=== PATIENT | male | born 1970 | race African-American/Black ===

== ENCOUNTER 2016-09-05 08:00 | Emergency (ER) | payer SELFPAY ==
[2016-09-05] MEDS ORDERED: MORPHINE SULFATE 10 MG/ML INJ IV ONE (08:39)
[2016-09-05 09:46] LABS: ABSOLUTE EOSINOPHILS # (AUTO) 0.1 10^3/uL (0.0-0.6); ABSOLUTE LYMPHOCYTES (AUTO) 1.1 10^3/uL (0.5-4.7); ABSOLUTE MONOCYTES (AUTO) 0.9 10^3/uL (0.1-1.4); ABSOLUTE NEUT (AUTO) 10.3 10^3/uL (1.7-8.2); BASOPHILS % (AUTO) 0.1 % (0-2); EOSINOPHILS % (AUTO) 0.7 % (0-6); HEMATOCRIT 43.5 % (37.9-51.0); HEMOGLOBIN 14.9 g/dL (13.5-17.0); HGB HCT DIFFERENCE 1.2; LYMPHOCYTES % (AUTO) 8.8 % (13-45); MEAN CORPUSCULAR HEMOGLOBIN 31.3 pg (27.0-33.4); MEAN CORPUSCULAR HGB CONC 34.2 g/dL (32.0-36.0); MEAN CORPUSCULAR VOLUME 92 fl (80-97); MONOCYTES % (AUTO) 7.5 % (3-13); RED BLOOD COUNT 4.75 10^6/uL (4.35-5.55); RED CELL DISTRIBUTION WIDTH 12.8 % (11.5-14.0); SEGMENTED NEUTROPHILS % (AUTO) 82.9 % (42-78); WHITE BLOOD COUNT 12.4 10^3/uL (4.0-10.5)
[2016-09-05 10:03] LABS: ALANINE AMINOTRANSFERASE 25 U/L (21-72); ALBUMIN 4.5 g/dL (3.5-5.0); ALCOHOL < 10 mg/dL (NONE DETECTED); ALKALINE PHOSPHATASE 81 U/L (38-126); ANION GAP 11 (5-19); ASPARTATE AMINO TRANSFERASE 20 U/L (17-59); BILIRUBIN,TOTAL 1.1 mg/dL (0.2-1.3); BLOOD UREA NITROGEN 12 mg/dL (7-20); CARBON DIOXIDE 25 mmol/L (22-30); CHLORIDE 104 mmol/L (98-107); CREATININE RESULT 0.98 mg/dL (0.52-1.25); GLUCOSE 83 mg/dL (75-110); LIPASE 54.7 U/L (23-300); POTASSIUM 3.7 mmol/L (3.6-5.0); SODIUM 139.5 mmol/L (137-145); TOTAL PROTEIN 7.2 g/dL (6.3-8.2)
[2016-09-05 10:27] LABS: APPEARANCE,URINE CLEAR; BILIRUBIN,URINE NEGATIVE (NEGATIVE); GLUCOSE, URINE NEGATIVE (NEGATIVE); KETONES,URINE TRACE mg/dL (NEGATIVE); LEUKOCYTE ESTERASE,URINE NEGATIVE (NEGATIVE); NITRITE,URINE NEGATIVE (NEGATIVE); PROTEIN,URINE NEGATIVE (NEGATIVE); URINE SPECIFIC GRAVITY 1.011; UROBILINOGEN,URINE NEGATIVE mg/dL (<2.0)
--- NOTE | 2016-09-05 10:33 | ER Document Report ---
ED GI/ - General Chief Complaint: Abdominal Pain Stated Complaint: ABDOMINAL PAIN Notes: Patient is a 46-year-old male presents emergency Department with left lower quadrant pain that started at 3 AM. Patient describes it as a constant ache nonradiating. Admits to nausea without vomiting. Last bowel movement was yesterday normal, soft without any evidence of blood or dark stool. Denies any fevers, bloating, pyuria, hematuria. States his urine is been a normal color. Does not have a primary care provider Does not have any past medical or past surgical history Social history he states that he has a her current smoker less than half pack a day, admits to daily alcohol use about 240 today. States that he is a drug user occasionally. Last use was cocaine on Monday. Denies any Gross, benzos, opiates or mouth. Denies any allergies TRAVEL OUTSIDE OF THE [place] IN LAST 30 DAYS: No - Related Data Allergies/Adverse Reactions: No Known Allergies Allergy (Unverified 08/01/12 15:55) Past Medical History - Social History Smoking Status: Current Every Day Smoker Family History: Reviewed & Not Pertinent - Past Medical History Cardiac Medical History: Reports: Hx Hypertension - no meds Skin Medical History: Denies Hx MRSA Surgical Hx: Negative - Immunizations Hx Diphtheria, Pertussis, Tetanus Vaccination: Yes Review of Systems - Review of Systems Constitutional: No symptoms reported EENT: No symptoms reported Cardiovascular: No symptoms reported Respiratory: No symptoms reported Gastrointestinal: See HPI Genitourinary: No symptoms reported Male Genitourinary: No symptoms reported Musculoskeletal: No symptoms reported Skin: No symptoms reported Hematologic/Lymphatic: No symptoms reported Neurological/Psychological: No symptoms reported Physical Exam - Vital signs Vitals: Temp Pulse Resp BP Pulse Ox 98.6 F 81 20 153/111 H 98 09/05/16 08:06 09/05/16 08:06 09/05/16 08:06 09/05/16 08:06 09/05/16 08:06 - Notes Notes: PHYSICAL EXAM GENERAL: Alert, interacts well. HEAD: Normocephalic, atraumatic. EYES: Pupils equal, round, and reactive to light. Extraocular movements intact. ENT: Oral mucosa moist, tongue midline. NECK: Full range of motion. Supple. Trachea midline. LUNGS: Clear to auscultation bilaterally, no wheezes, rales, or rhonchi. No respiratory distress. HEART: Regular rate and rhythm. No murmurs, gallops, or rubs. ABDOMEN: Soft, nondistended, nontender. No guarding, rebound, or rigidity.. Bowel sounds present in all 4 quadrants. Back: No CVA tenderness bilaterally EXTREMITIES: Moves all 4 extremities spontaneously. No edema, radial and dorsalis pedis pulses 2/4 bilaterally. No cyanosis. Back: mild tenderness to palpation of right lumbar paraspinous muscles NEUROLOGICAL: Alert and oriented x3. Normal speech. PSYCH: Normal affect, normal mood. SKIN: Warm, dry, normal turgor. No rashes or lesions noted. Course - Re-evaluation Re-evalutation: 09/05/16 11:02 patient is a 46 year old male p/w left side pain. CBC with mild elevation in WBC , no anemia. CMP WNL. UA nl. No concern for acute intraabdominal process at this time given benign physical exam and lab work. No additional imaging required at this time. Upon reexamination. Patient states that his pain is the same but he now is able to stand up and points to his back where he says the pain originated. This is not consistent with initial presentation. Palpation of the lumbar paraspinous muscles reveal tenderness. 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 - Vital Signs Vital signs: Temp Pulse Resp BP Pulse Ox 98.6 F 81 20 153/111 H 98 09/05/16 08:06 09/05/16 08:06 09/05/16 08:06 09/05/16 08:06 09/05/16 08:06 - Laboratory Result Diagrams: 09/05/16 09:14 09/05/16 09:14 Laboratory results interpreted by me: 09/05/16 09/05/16 09/05/16 09:14 09:14 10:06 WBC 12.4 H Seg Neutrophils % 82.9 H Lymphocytes % 8.8 L Absolute Neutrophils 10.3 H Urine Ketones TRACE H Salicylates < 1.0 L Acetaminophen < 10 L Discharge - Discharge Clinical Impression: Abdominal wall pain Condition: Good Disposition: HOME, SELF-CARE Additional Instructions: Muscle Strain You have strained a muscle -- torn the fibers within the muscle. This often occurs with strenuous exertion, or during an injury that suddenly stretches the muscle. The seriousness of a strain varies. Some strains heal within days, others cause problems for months. X-rays cannot show a muscle strain. X-rays are taken only if symptoms suggest that a fracture could be present. The usual treatment of a muscle strain is rest and ice packs. Sometimes, a sling, splint, or crutches may be necessary to rest the muscle. The muscle can be used again once pain subsides. Severe strains require a special exercise and stretching program to prevent permanent stiffness and disability. Your doctor will advise you if this will be necessary. Call the doctor immediately if pain or swelling becomes severe, or if numbness or discoloration develop. Muscle Relaxers Muscle relaxing medications are usually prescribed for acute muscle spasm or injury to the neck and back. They are often combined with antiinflammatory pain medication for increased relief. You may stop the muscle relaxer when the pain and stiffness have improved. Start the medication again if spasms recur. Muscle relaxers may cause drowsiness, especially with the first dose. Do not operate machinery or drive while under the effects of the medication. Most muscle relaxers last up to 24 hours. Do not combine the medication with alcohol. Prescriptions: Cyclobenzaprine HCl [Flexeril 5 mg Tablet] 5 mg PO TID #15 tablet Ibuprofen [Motrin 800 mg Tablet] 800 mg PO Q8H PRN #30 tab PRN Reason: Forms: Elevated Blood Pressure, Return to Work Referrals: [facility] [NO LOCAL MD] - Follow up as needed
[2016-09-05 10:47] LABS: URINE BARBITURATES SCREEN NEGATIVE; URINE METHADONE SCREEN NEGATIVE; URINE OPIATES LOW NEGATIVE; URINE PHENCYCLIDINE SCREEN NEGATIVE
[2016-09-05] MEDS ORDERED: CYCLOBENZAPRINE HCL 10 MG TABLET PO ONE (11:01)
[2016-09-05 11:47] VITALS: BP 168/115
== END 2016-09-05 11:43 | disposition home or self-care (01) ==
LOC: ER 08:00
DX: R10.32 Left lower quadrant pain (principal); F17.210 Nicotine dependence, cigarettes, uncomplicated; I10 Essential (primary) hypertension
CPT/HCPCS: 99284; 96374; 36415; 80307 ×4; 83690; 85025; 80053; 81001; J2270

== ENCOUNTER 2017-03-16 13:47 | Emergency (ER) | payer SELFPAY ==
--- NOTE | 2017-03-16 14:21 | ER Document Report ---
ED Medical Screen (RME) - General Chief Complaint: Abdominal Pain Stated Complaint: ABDOMINAL PAIN Time Seen by Provider: 03/16/17 14:19 Mode of Arrival: Ambulatory Information source: Patient TRAVEL OUTSIDE OF THE [place] IN LAST 30 DAYS: No - HPI Patient complains to provider of: abd/rectal pain Onset: Other - pt. had a painful BM earlier this week and has been having intermittent abd/rectal pain since - Related Data Allergies/Adverse Reactions: No Known Allergies Allergy (Verified 03/16/17 14:17) Past Medical History - Past Medical History Cardiac Medical History: Reports: Hx Hypertension - no meds Renal/ Medical History: Denies: Hx Peritoneal Dialysis Skin Medical History: Denies Hx MRSA - Immunizations Hx Diphtheria, Pertussis, Tetanus Vaccination: Yes Physical Exam - Vital signs Vitals: Temp Pulse Resp BP Pulse Ox 98.6 F 67 12 155/103 H 97 03/16/17 14:05 03/16/17 14:05 03/16/17 14:05 03/16/17 14:05 03/16/17 14:05 Course - Vital Signs Vital signs: Temp Pulse Resp BP Pulse Ox 98.6 F 67 12 155/103 H 97 03/16/17 14:05 03/16/17 14:05 03/16/17 14:05 03/16/17 14:05 03/16/17 14:05
[2017-03-16 14:49] LABS: ABSOLUTE EOSINOPHILS # (AUTO) 0.3 10^3/uL (0.0-0.6); ABSOLUTE LYMPHOCYTES (AUTO) 1.8 10^3/uL (0.5-4.7); ABSOLUTE MONOCYTES (AUTO) 0.8 10^3/uL (0.1-1.4); ABSOLUTE NEUT (AUTO) 6.8 10^3/uL (1.7-8.2); BASOPHILS % (AUTO) 0.3 % (0-2); EOSINOPHILS % (AUTO) 2.7 % (0-6); HEMATOCRIT 42.7 % (37.9-51.0); HGB HCT DIFFERENCE 2.3; LYMPHOCYTES % (AUTO) 18.2 % (13-45); MEAN CORPUSCULAR HEMOGLOBIN 31.9 pg (27.0-33.4); MEAN CORPUSCULAR HGB CONC 35.1 g/dL (32.0-36.0); MEAN CORPUSCULAR VOLUME 91 fl (80-97); MONOCYTES % (AUTO) 8.7 % (3-13); RED CELL DISTRIBUTION WIDTH 13.1 % (11.5-14.0); SEGMENTED NEUTROPHILS % (AUTO) 70.1 % (42-78); WHITE BLOOD COUNT 9.7 10^3/uL (4.0-10.5)
[2017-03-16 14:51] LABS: APPEARANCE,URINE CLEAR; BILIRUBIN,URINE NEGATIVE (NEGATIVE); GLUCOSE, URINE NEGATIVE (NEGATIVE); KETONES,URINE NEGATIVE (NEGATIVE); LEUKOCYTE ESTERASE,URINE NEGATIVE (NEGATIVE); NITRITE,URINE NEGATIVE (NEGATIVE); PROTEIN,URINE NEGATIVE (NEGATIVE); URINE SPECIFIC GRAVITY 1.009
[2017-03-16 15:05] LABS: ALANINE AMINOTRANSFERASE 25 U/L (21-72); ALKALINE PHOSPHATASE 83 U/L (38-126); ANION GAP 10 (5-19); ASPARTATE AMINO TRANSFERASE 17 U/L (17-59); BILIRUBIN,DIRECT 0.3 mg/dL (0.0-0.4); BILIRUBIN,TOTAL 0.6 mg/dL (0.2-1.3); BLOOD UREA NITROGEN 9 mg/dL (7-20); CALCIUM 9.6 mg/dL (8.4-10.2); CARBON DIOXIDE 28 mmol/L (22-30); CHLORIDE 104 mmol/L (98-107); CREATININE RESULT 1.06 mg/dL (0.52-1.25); GLUCOSE 109 mg/dL (75-110); POTASSIUM 3.6 mmol/L (3.6-5.0); SODIUM 141.9 mmol/L (137-145); TOTAL PROTEIN 6.8 g/dL (6.3-8.2)
--- NOTE | 2017-03-16 16:01 | RADIOLOGY REPORT (SQ) ---
EXAM DESCRIPTION: ACUTE ABDOMEN SERIES COMPLETED DATE/TIME: 03/16/2017 3:50 pm REASON FOR STUDY: abdominal pain COMPARISON: Two-view chest 10/28/2014 NUMBER OF VIEWS: Three views. TECHNIQUE: Frontal chest, supine abdomen and upright abdomen radiographic images acquired. LIMITATIONS: None. FINDINGS: CHEST: Lungs clear of infiltrates. Cardiac silhouette size, richie, bony structures unremar kable. FREE AIR: None. No abnormal gas collections. BOWEL GAS PATTERN: Nonobstructive pattern. No dilated loops or air fluid levels. CALCIFICATIONS: No suspicious calcifications. HARDWARE: None in the abdomen. SOFT TISSUES: No gross mass or suggestion of organomegaly. BONES: No acute fracture. No worrisome bone lesions. OTHER: No other significant finding. IMPRESSION: NO RADIOGRAPHIC EVIDENCE FOR ACUTE ABDOMINAL DISEASE. TECHNICAL DOCUMENTATION: JOB ID: [id number] [employer]- All Rights Reserved
[2017-03-16] MEDS ORDERED: IBUPROFEN 800 MG TABLET PO ONE (17:00)
--- NOTE | 2017-03-16 17:00 | ER Document Report ---
ED GI/ - General Chief Complaint: Abdominal Pain Stated Complaint: ABDOMINAL PAIN Time Seen by Provider: 03/16/17 14:19 Mode of Arrival: Ambulatory Notes: Patient is a 46-year-old male who presents emergency department complaining of rectal pain. Patient states that he has had several hard bowel movements over the course of last week most recently on Monday and on Monday started having rectal pain with bowel movements. Patient states has become more severe over the past 2 days with sitting. Patient states he has been taking Tylenol which does help him sleep otherwise has been able to have bowel movements without any evidence of blood or dark tarry stools. Patient denies any hematochezia. Patient states that he does have a history of blood pressure but is not follow- up with primary care physician. Denies any history of hemorrhoids TRAVEL OUTSIDE OF THE [place] IN LAST 30 DAYS: No - Related Data Allergies/Adverse Reactions: No Known Allergies Allergy (Verified 03/16/17 14:17) Home Medications: Current Home Medications No Home Medications 03/16/17 [History] Past Medical History - General Information source: Patient - Social History Smoking Status: Current Every Day Smoker Chew tobacco use (# tins/day): No Frequency of alcohol use: Social Drug Abuse: None Family History: Reviewed & Not Pertinent - Past Medical History Cardiac Medical History: Reports: Hx Hypertension - no meds Renal/ Medical History: Denies: Hx Peritoneal Dialysis Skin Medical History: Denies Hx MRSA - Immunizations Hx Diphtheria, Pertussis, Tetanus Vaccination: Yes Review of Systems - Review of Systems Constitutional: No symptoms reported Cardiovascular: No symptoms reported Respiratory: No symptoms reported Gastrointestinal: See HPI Neurological/Psychological: No symptoms reported Physical Exam - Vital signs Vitals: Temp Pulse Resp BP Pulse Ox 98.6 F 67 12 155/103 H 97 03/16/17 14:05 03/16/17 14:05 03/16/17 14:05 03/16/17 14:05 03/16/17 14:05 - Notes Notes: PHYSICAL EXAM GENERAL: Alert, interacts well. HEAD: Normocephalic, atraumatic. EYES: Pupils equal, round, and reactive to light. Extraocular movements intact. ENT: Oral mucosa moist, tongue midline. NECK: Full range of motion. Supple. Trachea midline. LUNGS: Clear to auscultation bilaterally, no wheezes, rales, or rhonchi. No respiratory distress. HEART: Regular rate and rhythm. No murmurs, gallops, or rubs. ABDOMEN: Soft, nondistended, nontender. No guarding, rebound, or rigidity.. Bowel sounds present in all 4 quadrants. Rectal: No evidence of induration, edema, erythema, fluctuance surrounding the anus of the gluteal tissue. Anus without any evidence of hemorrhoids that are thrombosed. On digital exam palpation of internal hemorrhoid that reproduces patient's pain otherwise prostate not inflamed nontender. EXTREMITIES: Moves all 4 extremities spontaneously. No edema, radial and dorsalis pedis pulses 2/4 bilaterally. No cyanosis. NEUROLOGICAL: Alert and oriented x4. Normal speech. PSYCH: Normal affect, normal mood. SKIN: Warm, dry, normal turgor. No rashes or lesions noted. Course - Re-evaluation Re-evalutation: 03/16/17 19:01 Patient is a 46-year-old male presents emergency department complaining of rectal pain. He is hemodynamic stable, no acute distress afebrile. No evidence of leukocytosis or anemia noted on CBC. No evidence of electrolyte abnormalities, renal, hepatic dysfunction. Physical exam is consistent with an inflamed internal hemorrhoid. Patient educated on suppositories to buy over-the -counter as well is pain medication and to [facility]. No evidence low clinical suspicion for prostatitis given clean urine and prostate nontender on exam. Patient is afebrile without any white count given low concern for any rectal abscess Or pilonidal cyst. Patient given strict return precautions otherwise stable for discharge. - Vital Signs Vital signs: Temp Pulse Resp BP Pulse Ox 98.6 F 71 16 153/105 H 98 03/16/17 17:10 03/16/17 17:10 03/16/17 17:10 03/16/17 17:10 03/16/17 17:10 - Laboratory Result Diagrams: 03/16/17 14:32 03/16/17 14:32 Laboratory results interpreted by me: 03/16/17 14:32 Urine Urobilinogen 4.0 H - Diagnostic Test Radiology reviewed: Image reviewed, Reports reviewed Discharge - Discharge Clinical Impression: Hemorrhoids Qualifiers: Hemorrhoid type: first degree Qualified Code(s): K64.0 - First degree hemorrhoids Condition: Good Disposition: HOME, SELF-CARE Additional Instructions: Hemorrhoids You have hemorrhoids. These are formed by enlargement of veins around the anus. The cause is increased pressure in the veins, from or straining at bowel movements. Hemorrhoids often cause itching and bleeding with bowel movements. When a hemorrhoid becomes clotted, severe pain and swelling result. Soothing creams and suppositories are often prescribed. Warm sitz-baths may also decrease pain, swelling, and itching. Eat a high-fiber diet. Stool softeners such as Metamucil will help. Keep the area very clean. Medicated cleansing pads (such as Tucks) are useful after bowel movements. A hose-mounted shower unit (like a shower massager at low water pressure) can be used to clean around tender hemorrhoid tags. You should call the doctor or return if you develop fever, increasing pain , or an enlarging mass around the anus, or if you simply fail to improve with treatment. Preparation H, Docusate and Motrin/Tylenol Referrals: [facility] [NO LOCAL MD] - Follow up as needed
[2017-03-16 17:11] VITALS: BP 153/105
== END 2017-03-16 19:28 | disposition home or self-care (01) ==
LOC: ER 13:47
DX: K64.0 First degree hemorrhoids (principal); F17.200 Nicotine dependence, unspecified, uncomplicated; I10 Essential (primary) hypertension
CPT/HCPCS: 36415; 74022; 80053; 81001; 85025; 99283

== ENCOUNTER 2017-03-22 16:04 | Inpatient (IN) | payer SELFPAY ==
--- NOTE | 2017-03-22 18:01 | ER Document Report ---
ED Medical Screen (RME) - General Chief Complaint: Rectal Pain Stated Complaint: RECTAL PAIN Time Seen by Provider: 03/22/17 18:00 Notes: Patient states he was seen here approximately week ago and diagnosed with hemorrhoids. Today he had a follow-up appointment at clinic. At clinic they felt that the patient had a possible abscess and not hemorrhoids and was referred to the emergency department. On my exam I do not appreciate an abscess or hemorrhoid however patient does appear to have indurated tissue perirectally with tenderness. TRAVEL OUTSIDE OF THE [place] IN LAST 30 DAYS: No - Related Data Allergies/Adverse Reactions: No Known Allergies Allergy (Verified 03/22/17 16:07) Past Medical History - Past Medical History Cardiac Medical History: Reports: Hx Hypertension - no meds Renal/ Medical History: Denies: Hx Peritoneal Dialysis Skin Medical History: Denies Hx MRSA - Immunizations Hx Diphtheria, Pertussis, Tetanus Vaccination: Yes Physical Exam - Vital signs Vitals: Temp Pulse Resp BP Pulse Ox 98.5 F 80 14 159/100 H 98 03/22/17 16:05 03/22/17 16:05 03/22/17 16:05 03/22/17 16:05 03/22/17 16:05 Course - Vital Signs Vital signs: Temp Pulse Resp BP Pulse Ox 98.5 F 80 14 159/100 H 98 03/22/17 16:05 03/22/17 16:05 03/22/17 16:05 03/22/17 16:05 03/22/17 16:05
[2017-03-22 18:55] LABS: ABSOLUTE EOSINOPHILS # (AUTO) 0.2 10^3/uL (0.0-0.6); ABSOLUTE LYMPHOCYTES (AUTO) 1.4 10^3/uL (0.5-4.7); ABSOLUTE MONOCYTES (AUTO) 2.4 10^3/uL (0.1-1.4); ABSOLUTE NEUT (AUTO) 14.8 10^3/uL (1.7-8.2); BASOPHILS % (AUTO) 0.2 % (0-2); EOSINOPHILS % (AUTO) 0.8 % (0-6); HEMATOCRIT 42.4 % (37.9-51.0); HEMOGLOBIN 14.7 g/dL (13.5-17.0); HGB HCT DIFFERENCE 1.7; LYMPHOCYTES % (AUTO) 7.4 % (13-45); MEAN CORPUSCULAR HEMOGLOBIN 31.3 pg (27.0-33.4); MEAN CORPUSCULAR HGB CONC 34.7 g/dL (32.0-36.0); MEAN CORPUSCULAR VOLUME 90 fl (80-97); MONOCYTES % (AUTO) 12.6 % (3-13); RED BLOOD COUNT 4.69 10^6/uL (4.35-5.55); RED CELL DISTRIBUTION WIDTH 13.3 % (11.5-14.0); WHITE BLOOD COUNT 18.8 10^3/uL (4.0-10.5)
--- NOTE | 2017-03-22 19:07 | RADIOLOGY REPORT (SQ) ---
EXAM DESCRIPTION: CT PELVIS WITH COMPLETED DATE/TIME: 03/22/2017 6:51 pm REASON FOR STUDY: rectal pain/r.o. abscess COMPARISON: None. TECHNIQUE: CT scan of the pelvis performed using helical scanning technique with dynamic intravenou s contrast injection. No oral contrast. Images reviewed with lung, soft tissue, and bone windows. Re constructed coronal and sagittal MPR images reviewed. Delayed images for evaluation of the urinary sy stem also acquired. All images stored on PACS. All CT scanners at this facility use dose modulation, iterative reconstruction, and/or weight based d osing when appropriate to reduce radiation dose to as low as reasonably achievable (ALARA). [facility]: Dose Right [facility]: CareDose [facility]: Dose Right [facility]: Teradose 4D [facility]: [place] CONTRAST TYPE AND DOSE: contrast/concentration: Isovue 370.00 mg/ml; Total Contrast Delivered: 100.0 ml; Total Saline Delivered: 40.0 ml RENAL FUNCTION: Creatinine 1.06 RADIATION DOSE: Up-to-date CT equipment and radiation dose reduction techniques were employed. CTDIv ol: 19.7 - 21.0 mGy. DLP: 1656 mGy-cm.. LIMITATIONS: None. FINDINGS: LEFT KIDNEY AND URETER: Partially imaged. AORTA AND VESSELS: No aneurysm. No dissection. Renal arteries, SMA, celiac without stenosis. RETROPERITONEUM: No retroperitoneal adenopathy, hemorrhage or masses. BOWEL AND PERITONEAL CAVITY: There is an 8.4 x 4.7 cm poorly defined multilocular perirectal fluid co llection lateral and posterior. Most consistent with abscess. APPENDIX: Normal. PELVIS: No free fluid. No significant finding in the bladder. ABDOMINAL WALL: No masses. No hernias. BONES: No significant or acute findings. OTHER: No other significant finding. IMPRESSION: Poorly defined loculated perirectal abscess. TECHNICAL DOCUMENTATION: JOB ID: [id number] Quality ID # [id number]: Final reports with documentation of one or more dose reduction techniques (e.g., Au tomated exposure control, adjustment of the mA and/or kV according to patient size, use of iterative reconstruction technique) 2010 [email or web address]- All Rights Reserved
--- NOTE | 2017-03-22 19:23 | ER Document Report ---
ED General - General Chief Complaint: Rectal Pain Stated Complaint: RECTAL PAIN Time Seen by Provider: 03/22/17 18:00 Notes: Patient is a 46-year-old male who comes emergency department for chief complaint of pain around the upper and mainly left buttocks area, symptoms started about 1.5 weeks ago, he states he was evaluated in the community clinic today and sent over for treatment. He denies any fevers, drainage, he denies painful bowel movements. He states it is painful to sit on the area. He denies any other symptoms. Past medical history of hypertension, he is treated for this, only other medical history is cyst removal from the neck as a child. TRAVEL OUTSIDE OF THE [place] IN LAST 30 DAYS: No - Related Data Allergies/Adverse Reactions: No Known Allergies Allergy (Verified 03/22/17 16:07) Past Medical History - General Information source: Patient - Social History Smoking Status: Current Every Day Smoker Smoking Education Provided: Yes - <3 min Frequency of alcohol use: None Drug Abuse: None Lives with: Family Family History: Reviewed & Not Pertinent - Past Medical History Cardiac Medical History: Reports: Hx Hypertension - medicated Renal/ Medical History: Denies: Hx Peritoneal Dialysis Skin Medical History: Denies Hx MRSA Past Surgical History: Reports: Other - cyst removal from neck (pediatric); unknown further details - Immunizations Immunizations up to date: Yes Hx Diphtheria, Pertussis, Tetanus Vaccination: Yes Review of Systems - Review of Systems Constitutional: No symptoms reported EENT: No symptoms reported Cardiovascular: No symptoms reported Respiratory: No symptoms reported Gastrointestinal: See HPI Genitourinary: No symptoms reported Male Genitourinary: No symptoms reported Musculoskeletal: No symptoms reported Skin: See HPI Hematologic/Lymphatic: No symptoms reported Neurological/Psychological: No symptoms reported Physical Exam - Vital signs Vitals: Temp Pulse Resp BP Pulse Ox 98.5 F 80 14 159/100 H 98 03/22/17 16:05 03/22/17 16:05 03/22/17 16:05 03/22/17 16:05 03/22/17 16:05 Interpretation: Normal - General General appearance: Alert, Anxious In distress: Mild - patient lying on his belly, appearing to be in pain - HEENT Head: Normocephalic, Atraumatic Eyes: Normal Conjunctiva: Normal Extraocular movements intact: Yes Eyelashes: Normal Pupils: PERRL Sinus: Normal Nasal: Normal Mouth/Lips: Normal Mucous membranes: Normal Pharynx: Normal Neck: Normal - Respiratory Respiratory status: No respiratory distress Chest status: Nontender Breath sounds: Normal. No: Decreased air movement, Wheezing Chest palpation: Normal - Cardiovascular Rhythm: Regular. No: Tachycardia Heart sounds: Normal auscultation, S1 appreciated, S2 appreciated Murmur: No - Abdominal Inspection: Normal Distension: No distension Bowel sounds: Normal Tenderness: Nontender Organomegaly: No organomegaly - Rectal Notes: I do not appreciate an abscess at the rectum, I do not appreciate any abnormalities inside of the rectum, area is not significantly tender. There is induration around the majority of the left mid to upper half of the left medial gluteal area extending up around around to the right side (some additional induration to the right side). Area is very tender. No fluctuance, no cellulitis evident, remaining exam unremarkable. - Back Back: Normal, Nontender. No: Tender - Extremities General upper extremity: Normal inspection, Nontender, Normal color, Normal ROM , Normal temperature General lower extremity: Normal inspection, Nontender, Normal color, Normal ROM , Normal temperature, Normal weight bearing - Neurological Neuro grossly intact: Yes Cognition: Normal Orientation: AAOx4 [place] Coma Scale Eye Opening: Spontaneous [place] Coma Scale Verbal: Oriented [place] Coma Scale Motor: Obeys Commands [place] Coma Scale Total: 15 Speech: Normal Motor strength normal: LUE, RUE, LLE, RLE Sensory: Normal - Psychological Associated symptoms: Normal affect, Normal mood - Skin Skin Temperature: Warm Skin Moisture: Dry Skin Color: Normal Course - Re-evaluation Re-evalutation: Concerning size of the indurated area on exam, although does not involve the anal sphincter, rectal exam is unremarkable. No fluctuant head. Leukocytosis of 18.8 with elevation of neutrophils but no bandemia. No fever or tachycardia. CT of the pelvis showing large abscess on both sides, almost 8.5 cm x 4.5 cm in size, appears deep. Described as loculated. Discussed with Dr. Beard. Recommends surgical consult, spoke with Dr. Hamlin, he will evaluate the patient at bedside. Patient's last meal was at 1 PM, he will be kept n.p.o. given Rocephin and vancomycin, given pain medication. Dr. Hamlin recommends patient be taken to the OR now for incision, drainage, debridement. Patient states full agreement with this plan. - Vital Signs Vital signs: Temp Pulse Resp BP Pulse Ox 98.5 F 80 14 159/100 H 98 03/22/17 16:05 03/22/17 16:05 03/22/17 16:05 03/22/17 16:05 03/22/17 16:05 - Laboratory Result Diagrams: 03/22/17 18:35 03/22/17 18:35 Laboratory results interpreted by me: 03/22/17 03/22/17 18:35 18:35 WBC 18.8 H Seg Neutrophils % 79.0 H Lymphocytes % 7.4 L Absolute Neutrophils 14.8 H Absolute Monocytes 2.4 H Potassium 3.3 L Direct Bilirubin 0.6 H Total Protein 8.3 H Discharge - Discharge Clinical Impression: Perirectal abscess Condition: Stable Disposition: ADMITTED INPATIENT Admitting Provider: Surgicalist Unit Admitted: OR
[2017-03-22 19:28] LABS: ALANINE AMINOTRANSFERASE 36 U/L (21-72); ALBUMIN 4.2 g/dL (3.5-5.0); ALKALINE PHOSPHATASE 111 U/L (38-126); ANION GAP 12 (5-19); ASPARTATE AMINO TRANSFERASE 31 U/L (17-59); BILIRUBIN,DIRECT 0.6 mg/dL (0.0-0.4); BILIRUBIN,TOTAL 0.9 mg/dL (0.2-1.3); BLOOD UREA NITROGEN 14 mg/dL (7-20); CALCIUM 9.9 mg/dL (8.4-10.2); CARBON DIOXIDE 27 mmol/L (22-30); CHLORIDE 103 mmol/L (98-107); GLUCOSE 86 mg/dL (75-110); POTASSIUM 3.3 mmol/L (3.6-5.0); SODIUM 142.4 mmol/L (137-145); TOTAL PROTEIN 8.3 g/dL (6.3-8.2)
[2017-03-22] MEDS ORDERED: HYDROMORPHONE HCL INJ/PF 2 MG/ML AMPULE IV ONE (19:41)
[2017-03-22] MEDS ORDERED: ONDANSETRON HCL INJ/PF 4 MG/2 ML SDV IV ONE (19:41)
[2017-03-22] MEDS ORDERED: VANCOMYCIN HCL INJ 1000 MG VIAL IV ONE (19:43)
[2017-03-22] MEDS ORDERED: CEFTRIAXONE 1 GM/D5W RTU 1 GM/50 ML RTUPB IV ONE (19:43)
--- NOTE | 2017-03-22 20:37 | PDOC H&P ---
History of Present Illness Admission Date/PCP: Today Patient complains of: Perianal pain History of Present Illness: KOURTNEY HARRINGTON is a 46 year old male presents to [facility] ER with progressive worsening perirectal pain. He notes that this started a week and half ago but slowly got worse over the last 10 days. Currently now difficult to ambulate as well as lie recumbent on the site. Notes the pain to be 7-9 out of 10 with palpation. Without palpation at rest the pain is [address] in the ER notes a perirectal abscess 8 cm in size in largest diameter. Patient also has is 18,000 leukocytosis. Currently denying any fever chest pain shortness breath nausea vomiting diarrhea. Patient's only significant past medical history is that of hypertension family history of diabetes. Last oral intake was 1 PM this afternoon. Last BM was today formed. Past Medical History Cardiac Medical History: Reports: Hypertension - no meds Past Surgical History Past Surgical History: Reports: None Social History Information Source: Patient Lives with: Family Smoking Status: Never Smoker Frequency of Alcohol Use: None Hx Recreational Drug Use: No Hx Prescription Drug Abuse: No Family History Family History: Reviewed & Not Pertinent Parental Family History Reviewed: Yes - Grandmother history of DM Children Family History Reviewed: Yes Sibling(s) Family History Reviewed.: Yes Medication/Allergy Home Medications: No Home Medications 03/16/17 Allergies/Adverse Reactions: No Known Allergies Allergy (Verified 03/22/17 16:07) Review of Systems Constitutional: ABSENT: fatigue, fever(s), headache(s), weakness Eyes: ABSENT: visual disturbances Ears: ABSENT: hearing changes Nose, Mouth, and Throat: ABSENT: mouth pain, sore throat Cardiovascular: ABSENT: chest pain, dyspnea on exertion, edema, palpitations Respiratory: ABSENT: cough, dyspnea Gastrointestinal: ABSENT: abdominal pain, constipation, diarrhea, dysphagia, nausea, vomiting Genitourinary: ABSENT: dysuria Neurological: ABSENT: vertigo, weakness Physical Exam Vital Signs: Temp Pulse Resp BP Pulse Ox 98.5 F 80 14 159/100 H 98 03/22/17 16:05 03/22/17 16:05 03/22/17 16:05 03/22/17 16:05 03/22/17 16:05 Intake & Output 03/21/17 03/22/17 03/23/17 06:59 06:59 06:59 Weight 108.1 kg General appearance: PRESENT: no acute distress Head exam: PRESENT: atraumatic, normocephalic Eye exam: PRESENT: conjunctiva pink Mouth exam: PRESENT: moist, neck supple Neck exam: ABSENT: lymphadenopathy, tenderness, thyromegaly, tracheal deviation Respiratory exam: PRESENT: clear to auscultation jessica Cardiovascular exam: PRESENT: RRR Vascular exam: PRESENT: normal capillary refill GI/Abdominal exam: PRESENT: soft. ABSENT: distended, firm, guarding, tenderness Rectal exam: PRESENT: deferred, other - perirectal inflammatory changes with minimal erythema Extremities exam: ABSENT: calf tenderness, tenderness Neurological exam: PRESENT: alert, awake, oriented to person, oriented to place , oriented to time, oriented to situation, CN II-XII grossly intact. ABSENT: motor sensory deficit Results Laboratory Results: 03/22/17 18:35 03/22/17 18:35 03/22/17 03/22/17 18:35 18:35 WBC 18.8 H RBC 4.69 Hgb 14.7 Hct 42.4 MCV 90 MCH 31.3 MCHC 34.7 RDW 13.3 Plt Count 206 Seg Neutrophils % 79.0 H Lymphocytes % 7.4 L Monocytes % 12.6 Eosinophils % 0.8 Basophils % 0.2 Absolute Neutrophils 14.8 H Absolute Lymphocytes 1.4 Absolute Monocytes 2.4 H Absolute Eosinophils 0.2 Absolute Basophils 0.0 Sodium 142.4 Potassium 3.3 L Chloride 103 Carbon Dioxide 27 Anion Gap 12 BUN 14 Creatinine 1.20 Est GFR ( Amer) > 60 Est GFR (Non-Af Amer) > 60 Glucose 86 Calcium 9.9 Total Bilirubin 0.9 AST 31 ALT 36 Alkaline Phosphatase 111 Total Protein 8.3 H Albumin 4.2 Impressions: Pelvis CT 03/22/17 18:00 IMPRESSION: Poorly defined loculated perirectal abscess. Assessment & Plan - Diagnosis (1) Perirectal abscess Is this a current diagnosis for this admission?: Yes Plan: NPO IVF Pain control Pulmonary toilet OR for I&D with packing Hospitalization for IV antibiotics - Time Time Spent: 30 to 50 Minutes Within: within 48 hours
[2017-03-22] MEDS ORDERED: KETAMINE HCL INJ 500 MG/10 ML VIAL ONE (21:02)
[2017-03-22] MEDS ORDERED: LIDOCAINE 2% INJ-PF (20 MG/ML) 10 ML AMPUL ONE (21:02)
[2017-03-22] MEDS ORDERED: FENTANYL CITRATE INJ/PF 100 MCG/2 ML AMPUL ONE (21:02)
[2017-03-22] MEDS ORDERED: PROPOFOL INJ 200 MG/20 ML VIAL IV ONE ×2 (21:03→22:23)
[2017-03-22] MEDS ORDERED: ACETAMINOPHEN 100 ML IV ONE (21:03)
[2017-03-22] MEDS ORDERED: MIDAZOLAM 2 MG/2 ML INJ ONE (21:03)
[2017-03-22] MEDS ORDERED: CLINDAMYCIN 600 MG/D5W RTU 600 MG/50 ML RTUPB IV ONE (21:22)
[2017-03-22] MEDS ORDERED: FENTANYL CITRATE INJ/PF 100 MCG/2 ML AMPUL IV PRN ×3 (21:44)
[2017-03-22] MEDS ORDERED: DIPHENHYDRAMINE HCL 50 MG/ML VIAL IV PRN (21:44)
[2017-03-22] MEDS ORDERED: ONDANSETRON HCL INJ/PF 4 MG/2 ML SDV IV PRN ×2 (21:44→22:23)
[2017-03-22] MEDS ORDERED: MEPERIDINE HCL/PF INJ 25 MG/1 ML DISP.SYRIN IV PRN (21:44)
[2017-03-22] MEDS ORDERED: MORPHINE SULFATE 10 MG/ML INJ IV PRN (21:44)
[2017-03-22] MEDS ORDERED: PROMETHAZINE HCL INJ 25 MG/1 ML VIAL IV PRN ×2 (21:44)
[2017-03-22] MEDS ORDERED: OXYCODONE-ACETAMINOPHEN 5-325 MG TABLET PO PRN ×2 (21:44)
[2017-03-22] MEDS ORDERED: LIDOCAINE 1%/EPINEPHRINE INJ 20 ML VIAL INJ ONE (21:48)
[2017-03-22] MEDS ORDERED: BUPIVACAINE HCL 0.25 % INJ/PF (2.5 MG/1 ML) 30 ML VIAL INJ ONE (21:48)
[2017-03-22] MEDS ORDERED: BUPIVACAINE HCL 0.25 % INJ/PF (2.5 MG/1 ML) 30 ML VIAL ONE (21:49)
[2017-03-22] MEDS ORDERED: LIDOCAINE 1%/EPINEPHRINE INJ 20 ML VIAL ONE (21:49)
[2017-03-22] MEDS ORDERED: ACETAMINOPHEN 325 MG TABLET PO PRN (22:23)
[2017-03-22] MEDS ORDERED: DEXTROSE 5%-LACTATED RINGERS 1,000 ML IV PRN (22:23)
--- NOTE | 2017-03-22 22:23 | Operative Report ---
Operative Report DATE OF SURGERY: 03/22/17 Operative Report: Clinical indications: Mr Sorto is a 46 year old male who presents to [facility] ER with progressive worsening of perirectal pain. ER workup revealed leukocytosis and CT findings suggestive of perianal abscess. Consent was obtained from the patient explaining complications risks and benefits of the procedure including but not limited to bleeding, infection, need for reoperation and incontinence to which he accepted. Procedure in detail: He was brought to the operative suite. Prior to anesthetic induction SCDs were placed and functional. He was positioned prone jackknife on the table. Site was sterily prepped and draped in the usual manner. Prior to I& D site for access was noted easiest overlying the sacrum. Prior to incision local was instilled of 1% lidocaine mixed 50/50 with 0.25 marcaine with epinephrine of which 15mls were used. Initial incision was vertical but extended to uncap the abscess cavity to allow for easier abscess packing. Cultures were obtained. Irrigation and aspiration of the site was done till clear. Hemostasis was obtained using electrocautery. Notable limbs from the abscess extended along the either side of the anal canal. Iodoform gauze was applied to the area filling up each limb. Superficially he had dressings of 4x4s and an ABD. Surgical mesh underwear. Patient was awoken from anesthesia and transported back to PACU in stable condition. PREOPERATIVE DIAGNOSIS: Perianal abscess POSTOPERATIVE DIAGNOSIS: Perianal horseshoe abscess OPERATION: Incision and drainage of perianal abscess with packing SURGEON: KOBE SRINIVASAN ANESTHESIA: LMAC TISSUE REMOVED OR ALTERED: Abscess cavity debrided, irrigated till clear. 1 bottle of 1/4 iodoform gauze applied to site COMPLICATIONS: None ESTIMATED BLOOD LOSS: 20mls INTRAOPERATIVE FINDINGS: Polymorphous perianal abscess measuring 11cm down right limb and 6cm down left limb perianally. The superior abscess cavity measured 5cm in diameter and was 3cm in depth.
[2017-03-22] MEDS ORDERED: AMPICILLIN SOD/SULBACTAM 3 GM VIAL IV SCH (22:30)
[2017-03-22] MEDS: MORPHINE SULFATE 10 MG/ML INJ IV PRN (23:18)
[2017-03-23] MEDS: OXYCODONE-ACETAMINOPHEN 5-325 MG TABLET PO PRN ×4 (01:30→20:26)
[2017-03-23] MEDS: METRONIDAZOLE 500 MG/NS RTU 100 ML IV SCH ×3 (05:36→21:35)
[2017-03-23] MEDS: MORPHINE SULFATE 10 MG/ML INJ IV PRN ×2 (05:46→10:15)
[2017-03-23] MEDS ORDERED: METRONIDAZOLE 500 MG/NS RTU 100 ML IV SCH ×2 (06:00)
[2017-03-23] MEDS ORDERED: METRONIDAZOLE 500 MG/NS RTU 250 MG in CONTAINER,EMPTY 1 EACH IV SCH (06:00)
[2017-03-23 06:31] LABS: ABSOLUTE EOSINOPHILS # (AUTO) 0.2 10^3/uL (0.0-0.6); ABSOLUTE LYMPHOCYTES (AUTO) 1.2 10^3/uL (0.5-4.7); ABSOLUTE MONOCYTES (AUTO) 1.8 10^3/uL (0.1-1.4); ABSOLUTE NEUT (AUTO) 11.9 10^3/uL (1.7-8.2); BASOPHILS % (AUTO) 0.3 % (0-2); EOSINOPHILS % (AUTO) 1.1 % (0-6); HEMATOCRIT 37.2 % (37.9-51.0); HGB HCT DIFFERENCE 1.8; LYMPHOCYTES % (AUTO) 7.7 % (13-45); MEAN CORPUSCULAR HGB CONC 34.8 g/dL (32.0-36.0); MEAN CORPUSCULAR VOLUME 89 fl (80-97); RED BLOOD COUNT 4.18 10^6/uL (4.35-5.55); RED CELL DISTRIBUTION WIDTH 13.2 % (11.5-14.0); SEGMENTED NEUTROPHILS % (AUTO) 78.9 % (42-78); WHITE BLOOD COUNT 15.1 10^3/uL (4.0-10.5)
[2017-03-23] MEDS ORDERED: AMPICILLIN SOD/SULBACTAM 3 GM VIAL IV PRN (06:50)
[2017-03-23] MEDS ORDERED: AMPICILLIN SODIUM/SULBACTAM NA 3 GM in NORMAL SALINE 100 ML IV SCH (07:00)
[2017-03-23] MEDS: PANTOPRAZOLE SODIUM 40 MG VIAL IV SCH ×2 (09:59→21:35)
[2017-03-23] MEDS: DOCUSATE SODIUM 100 MG CAPSULE PO SCH (09:59)
[2017-03-23] MEDS ORDERED: ONDANSETRON HCL INJ/PF 4 MG/2 ML SDV IV PRN (10:00)
--- NOTE | 2017-03-23 11:09 | PDOC PROGRESS REPORT ---
Subjective Progress Note for:: 03/23/17 Subjective:: Feels better. Still having some perianal pain but much improved from preop Physical Exam Vital Signs: Temp Pulse Resp BP Pulse Ox 99.4 F 89 17 128/92 H 97 03/23/17 07:35 03/23/17 07:35 03/23/17 07:35 03/23/17 07:35 03/23/17 07:35 Intake & Output 03/22/17 03/23/17 03/24/17 06:59 06:59 06:59 Intake Total 660 Output Total 0 Balance 660 General appearance: PRESENT: no acute distress, cooperative Respiratory exam: PRESENT: clear to auscultation jessica Cardiovascular exam: PRESENT: RRR Rectal exam: PRESENT: other - Sings in place. Mild tenderness around the perianal region. No crepitus. Results Laboratory Results: 03/23/17 06:04 03/23/17 06:04 WBC 15.1 H RBC 4.18 L Hgb 13.0 L Hct 37.2 L MCV 89 MCH 31.0 MCHC 34.8 RDW 13.2 Plt Count 182 Seg Neutrophils % 78.9 H Lymphocytes % 7.7 L Monocytes % 12.0 Eosinophils % 1.1 Basophils % 0.3 Absolute Neutrophils 11.9 H Absolute Lymphocytes 1.2 Absolute Monocytes 1.8 H Absolute Eosinophils 0.2 Absolute Basophils 0.0 Impressions: Pelvis CT 03/22/17 18:00 IMPRESSION: Poorly defined loculated perirectal abscess. Assessment & Plan - Diagnosis (1) Perirectal abscess Is this a current diagnosis for this admission?: Yes Plan: Status post debridement. Surgeon wanted to wait until tomorrow to do dressing changes. will continue IV antibiotics. Hep-Lock IV encourage ambulation.
[2017-03-23] MEDS ORDERED: AMPICILLIN SODIUM/SULBACTAM NA 3 GM in NORMAL SALINE 100 ML IV ONE (19:00)
[2017-03-24] MEDS: AMPICILLIN SODIUM/SULBACTAM NA 3 GM in NORMAL SALINE 100 ML IV SCH ×5 (00:31→23:00)
[2017-03-24] MEDS: MORPHINE SULFATE 10 MG/ML INJ IV PRN ×4 (00:39→15:29)
[2017-03-24] MEDS: OXYCODONE-ACETAMINOPHEN 5-325 MG TABLET PO PRN ×2 (04:20→19:57)
[2017-03-24] MEDS: METRONIDAZOLE 500 MG/NS RTU 100 ML IV SCH ×3 (05:11→22:38)
[2017-03-24 06:57] LABS: ABSOLUTE EOSINOPHILS # (AUTO) 0.2 10^3/uL (0.0-0.6); ABSOLUTE LYMPHOCYTES (AUTO) 1.3 10^3/uL (0.5-4.7); ABSOLUTE MONOCYTES (AUTO) 1.5 10^3/uL (0.1-1.4); ABSOLUTE NEUT (AUTO) 9.4 10^3/uL (1.7-8.2); BASOPHILS % (AUTO) 0.2 % (0-2); EOSINOPHILS % (AUTO) 1.6 % (0-6); HEMATOCRIT 36.3 % (37.9-51.0); HEMOGLOBIN 12.6 g/dL (13.5-17.0); HGB HCT DIFFERENCE 1.5; LYMPHOCYTES % (AUTO) 10.4 % (13-45); MEAN CORPUSCULAR HEMOGLOBIN 31.1 pg (27.0-33.4); MEAN CORPUSCULAR HGB CONC 34.7 g/dL (32.0-36.0); MEAN CORPUSCULAR VOLUME 90 fl (80-97); MONOCYTES % (AUTO) 12.2 % (3-13); RED BLOOD COUNT 4.06 10^6/uL (4.35-5.55); RED CELL DISTRIBUTION WIDTH 13.3 % (11.5-14.0); SEGMENTED NEUTROPHILS % (AUTO) 75.6 % (42-78); WHITE BLOOD COUNT 12.4 10^3/uL (4.0-10.5)
[2017-03-24] MEDS: DOCUSATE SODIUM 100 MG CAPSULE PO SCH (09:50)
[2017-03-24] MEDS: PANTOPRAZOLE SODIUM 40 MG VIAL IV SCH ×2 (09:50→22:37)
[2017-03-24] MEDS ORDERED: OXYCODONE-ACETAMINOPHEN 5-325 MG TABLET ONE (12:50)
[2017-03-24] MEDS ORDERED: LORAZEPAM INJ 2 MG/1 ML VIAL IV ONE (14:59)
[2017-03-24] MEDS ORDERED: LORAZEPAM INJ 2 MG/1 ML VIAL ONE (15:06)
[2017-03-24] MEDS ORDERED: MORPHINE SULFATE 10 MG/ML INJ ONE (15:58)
--- NOTE | 2017-03-24 17:48 | PROGRESS NOTE E ---
Progress Note NAME: KOURTNEY HARRINGTON : 1970 AGE: 46Y DATE: 03/24/2017 ROOM: 212 SUBJECTIVE: The patient is still having some pain in the perirectal area that was drained. OBJECTIVE: On physical exam, packing is in place and also, the patient was given IV pain medication and sedation. The packing was removed. No evidence of drainage noted. The cavity was irrigated with saline solution and subsequently kept dry with a 4 x 4 that was again removed. No active bleeding noted and no evidence of pus noted. The wound was gently packed with Iodoform gauze and packed loosely since the patient somehow was in severe pains while doing the repacking, and he had an extra dose of 4 mg IV morphine at the latter part of the repacking. PLAN: Since his white count was still elevated yesterday, will repeat the white count in the morning, which comes down to almost normal and the new packing was placed, he could probably be discharged tomorrow and have the packing removed and replaced in the surgical clinic on Monday. DICTATING PHYSICIAN: FEROZ GARCIA M.D. [id number] PHY#: [id number] ID: [id number] JOB#: [id number] ACCT: [id number] cc: >
--- NOTE | 2017-03-24 18:13 | PROGRESS NOTE E ---
Progress Note NAME: KOURTNEY HARRINGTON : 1970 AGE: 46Y DATE: 03/24/2017 ROOM: 212 This is the second postop day post I and D of perianal abscess with packing. The patient is given 4 mg of morphine and 1 mg of Ativan prior to changing of the packing. The packing was removed and the wound appears to be relatively dry. It was then irrigated in saline solution and repacked with iodoform gauze. His white count was elevated yesterday and will repeat it tomorrow prior to discharge. Continue on IV antibiotics. DICTATING PHYSICIAN: FEROZ GARCIA M.D. [id number] PHY#: [id number] ID: [id number] JOB#: [id number] ACCT: [id number] cc: >
--- NOTE | 2017-03-24 21:23 | OPERATIVE REPORT E ---
Operative Report NAME: KOURTNEY HARRINGTON : 1970 AGE: 46Y DATE OF SURGERY: 03/24/2017 ROOM: 212 PREOPERATIVE DIAGNOSIS: Post incision and drainage of perirectal abscess with packing. POSTOPERATIVE DIAGNOSIS: Post incision and drainage of perirectal abscess with packing. OPERATION: Removal of the packing, irrigation of the wound, and placement of new packing of the perirectal abscess site. SURGEON: FEROZ GARCIA M.D. ANESTHESIA: IV sedation. INDICATION: This is a 46-year-old male who had an abscess in the perirectal area that was drained by Dr. Hamlin about 2 days ago. The packing needed to come out and have a wound check. PROCEDURE: Patient is placed in the right lateral decubitus position. Patient was given 4 mg of IV morphine and 1 mg of Ativan. The packing was noted and subsequently pulled out quite easily, though patient in considerable amount of pain. Next, the cavity was then irrigated with saline solution. No evidence of pus or any drainage noted. Following this, the patient is given an extra 4 mg of morphine IV while putting the new 1/4 inch Iodoform gauze's light gentle packing. Sterile dressing is placed over the wound site and is then taped to the skin. Patient given a new disposable brief to keep the dressings in place. DICTATING PHYSICIAN: FEROZ GARCIA M.D. [id number] PHY#: [id number] ID: [id number] JOB#: [id number] ACCT: [id number] cc:FEROZ GARCIA M.D. >
[2017-03-25] MEDS: OXYCODONE-ACETAMINOPHEN 5-325 MG TABLET PO PRN ×4 (00:02→20:58)
[2017-03-25] MEDS: METRONIDAZOLE 500 MG/NS RTU 100 ML IV SCH ×3 (05:28→22:50)
[2017-03-25] MEDS: AMPICILLIN SODIUM/SULBACTAM NA 3 GM in NORMAL SALINE 100 ML IV SCH ×4 (05:28→23:04)
[2017-03-25 06:49] LABS: HEMATOCRIT 36.1 % (37.9-51.0); HEMOGLOBIN 12.6 g/dL (13.5-17.0); HGB HCT DIFFERENCE 1.7; MEAN CORPUSCULAR VOLUME 89 fl (80-97); RED BLOOD COUNT 4.08 10^6/uL (4.35-5.55); RED CELL DISTRIBUTION WIDTH 13.6 % (11.5-14.0); WHITE BLOOD COUNT 9.1 10^3/uL (4.0-10.5)
[2017-03-25 07:25] LABS: BAND NEUTROPHILS % (MANUAL) 1 % (3-5); BASOPHILS % (MANUAL) 0 % (0-2); EOSINOPHILS % (MANUAL) 3 % (0-6); LYMPHOCYTES % (MANUAL) 15 % (13-45); NUCLEATED RED BLOOD CELLS 2 /100 WBC (0); TOTAL CELLS COUNTED 100; TOXIC GRANULATION SLIGHT
[2017-03-25 07:26] LABS: RBC MORPHOLOGY COMMENT NORMO-CYTIC/CHROMIC
[2017-03-25] MEDS: PANTOPRAZOLE SODIUM 40 MG VIAL IV SCH ×2 (11:04→22:51)
[2017-03-25] MEDS: DOCUSATE SODIUM 100 MG CAPSULE PO SCH (11:45)
[2017-03-25] MEDS ORDERED: LORAZEPAM INJ 2 MG/1 ML VIAL IV ONE (14:45)
[2017-03-25] MEDS ORDERED: HYDROMORPHONE HCL INJ/PF 2 MG/ML AMPULE IV ONE (14:45)
--- NOTE | 2017-03-25 19:08 | PROGRESS NOTE E ---
Progress Note NAME: KOURTNEY HARRINGTON : 1970 AGE: 46Y DATE: 03/25/2017 ROOM: 212 SUBJECTIVE: Patient remained afebrile. His white count yesterday was 9.1. OBJECTIVE: The packing was removed after giving 2 mg of Dilaudid and 2 mg of Ativan IV. The packing is soaked with thin exudate. The wound was then repacked with quarter-inch Iodoform gauze. A sterile dressing was placed over the packing site. PLAN: The plan is to continue him on IV antibiotics for another 24 hours. I am going to change the packing again tomorrow and possibly discharge him after changing the packing, and then to be followed up in the clinic in 2 or 3 days. DICTATING PHYSICIAN: FEROZ GARCIA M.D. [id number] PHY#: [id number] ID: [id number] JOB#: [id number] ACCT: [id number] cc: >
[2017-03-26] MEDS ORDERED: METRONIDAZOLE 500 MG/NS RTU 100 ML IV ONE (01:00)
[2017-03-26] MEDS: OXYCODONE-ACETAMINOPHEN 5-325 MG TABLET PO PRN ×5 (01:05→21:14)
[2017-03-26] MEDS: METRONIDAZOLE 500 MG/NS RTU 100 ML IV SCH ×2 (05:24→14:45)
[2017-03-26] MEDS: AMPICILLIN SODIUM/SULBACTAM NA 3 GM in NORMAL SALINE 100 ML IV SCH ×3 (05:26→19:50)
[2017-03-26 06:31] LABS: HEMATOCRIT 37.5 % (37.9-51.0)
[2017-03-26 06:39] LABS: HEMOGLOBIN 13.1 g/dL (13.5-17.0); HGB HCT DIFFERENCE 1.8; MEAN CORPUSCULAR HEMOGLOBIN 30.9 pg (27.0-33.4); MEAN CORPUSCULAR HGB CONC 34.8 g/dL (32.0-36.0); MEAN CORPUSCULAR VOLUME 89 fl (80-97); RED BLOOD COUNT 4.22 10^6/uL (4.35-5.55); RED CELL DISTRIBUTION WIDTH 13.4 % (11.5-14.0); WHITE BLOOD COUNT 9.6 10^3/uL (4.0-10.5)
[2017-03-26 07:18] LABS: BAND NEUTROPHILS % (MANUAL) 1 % (3-5); BASOPHILS % (MANUAL) 0 % (0-2); EOSINOPHILS % (MANUAL) 2 % (0-6); LYMPHOCYTES % (MANUAL) 22 % (13-45); NUCLEATED RED BLOOD CELLS 1 /100 WBC (0); TOTAL CELLS COUNTED 100
[2017-03-26 07:19] LABS: RBC MORPHOLOGY COMMENT NORMO-CYTIC/CHROMIC
[2017-03-26] MEDS: DOCUSATE SODIUM 100 MG CAPSULE PO SCH (09:57)
[2017-03-26] MEDS ORDERED: AMLODIPINE BESYLATE 5 MG TABLET PO SCH (10:00)
[2017-03-26] MEDS ORDERED: HYDROMORPHONE HCL INJ/PF 2 MG/ML AMPULE ONE (16:30)
[2017-03-26] MEDS ORDERED: LORAZEPAM INJ 2 MG/1 ML VIAL ONE (16:31)
[2017-03-26 20:55] VITALS: BP 146/93
--- NOTE | 2017-03-26 20:58 | OPERATIVE REPORT E ---
Operative Report NAME: KOURTNEY HARRINGTON : 1970 AGE: 46Y DATE OF SURGERY: 03/26/2017 ROOM: 212 PREOPERATIVE DIAGNOSIS: Abscess of the perirectal area. POSTOPERATIVE DIAGNOSIS: Abscess of the perirectal area. OPERATION: Change of packing of perirectal abscess site. SURGEON: FEROZ GARCIA M.D. ANESTHESIA: IV sedation. DESCRIPTION OF PROCEDURE: The patient was given 2 mg of Dilaudid and 2 mg of Ativan IV, and after a few minutes the patient was placed in the right lateral decubitus position, and the pack in the perirectal area was then removed. A another packing of 1/4-inch Iodoform gauze was then used to pack the area. The previously removed packing had some thick exudate and blood tinge. Sterile dressing was then placed over the abscess site. The patient tolerated the procedure well. The patient will likely need another change of packing prior to discharge and then followed up in the Surgical Clinic. He has a lot of pains during the change of the packing and hopefully in the next 2-3 days, he will not have as much pains when it is changed. In the meantime, he grew Enterobacter cloacae from the culture and was sensitive to Cipro. He was then placed on Cipro IV tonight and then p.o. Cipro on discharge. DICTATING PHYSICIAN: FEROZ GARCIA M.D. [id number] PHY#: [id number] ID: [id number] JOB#: [id number] ACCT: [id number] cc:FEROZ GARCIA M.D. >
--- NOTE | 2017-03-26 21:28 | DISCHARGE SUMMARY E ---
Discharge Summary NAME: KOURTNEY HARRINGTON : 1970 AGE: 46Y ADMITTED: 03/22/2017 DISCHARGED: PROCEDURE DONE: Incision and drainage of perianal abscess with packing done by Dr. Hamlin. HOSPITAL COURSE: The patient had changing of perianal abscess packing daily since postoperative day 2. Culture then showed Enterobacter cloacae sensitive to Cipro. The patient had antibiotic changed to Cipro 500 mg p.o. b.i.d. for 10 days. He had another change of dressing and packing and the day of discharge on 03/26/2017. The patient to have a visit by wound care nurse tomorrow or Monday to change the packing and to be followed at the surgical clinic afterwards for further wound check and possibly replacement of packing. The patient was given a prescription for Cipro and Percocet. The patient can have a regular diet and avoid any heavy lifting for the next 2 weeks. DICTATING PHYSICIAN: FEROZ GARCIA M.D. [id number] PHY#: [id number] ID: [id number] JOB#: [id number] ACCT: [id number] cc:Christofer LEWIS MD, M.D. IVAN FRIANT, PA > MTDD
== END 2017-03-26 21:50 | disposition home health service (06) | DRG 349 ==
LOC: ER 16:04 → UNDOADMIN 20:46 → EH 20:46 → 2N 22:47 → EH 22:47
PROVIDERS: ATTEND Surgery
PROC: 0D9Q0ZZ Drainage of Anus, Open Approach (ICD-10-PCS; principal; 2017-03-22 21:30)
PROC: 2W05X5Z Change Packing Material on Back (ICD-10-PCS; 2017-03-24)
PROC: 2W05X5Z Change Packing Material on Back (ICD-10-PCS; 2017-03-26)
DX: K61.0 Anal abscess (principal); B96.89 Other specified bacterial agents as the cause of diseases classified elsewhere; I10 Essential (primary) hypertension
CPT/HCPCS: 36415; 72193; 80053; 85025; 87070; 87075; 87077; 87186; 87205; 88304; 902; 96374; 96375; 99285; A6266; J0131; J0295; J0696; J1170; J2060; J2250; J2270; J2405; J2704; J3010; J3490; S0164

== ENCOUNTER 2017-10-20 14:13 | Observation (INO) | payer SELFPAY ==
[~2017-10-20 14:13] MED LIST: DEXAMETHASONE SOD PHOSPHATE INJ 4 MG/1 ML VIAL ONE; GLYCOPYRROLATE INJ 0.4 MG/2 ML VIAL ONE; KETOROLAC TROMETHAMINE 60 MG/2 ML SDV ONE; LIDOCAINE 2% INJ-PF (20 MG/ML) 2 ML AMPUL ONE; METOCLOPRAMIDE HCL INJ/PF 10 MG/2 ML SDV ONE; ONDANSETRON HCL INJ/PF 4 MG/2 ML SDV ONE; SUCCINYLCHOLINE CHLORIDE INJ 200 MG/10 ML VIAL ONE
[2017-10-20] MEDS ORDERED: METRONIDAZOLE 500 MG/NS RTU 100 ML IV ONE (14:56)
--- NOTE | 2017-10-20 14:58 | ER Document Report ---
ED GI Bleed / Rectal Pain - General Chief Complaint: Rectal Pain Stated Complaint: RECTAL PAIN Time Seen by Provider: 10/20/17 14:38 Mode of Arrival: Ambulatory Information source: Patient Notes: Patient presents complaining of rectal tenderness that started yesterday. Patient denies any drainage or rectal bleeding. Patient denies any abdominal pain, nausea or vomiting. Patient states he has had a problem similar to this last year and had to have surgery for a junior-anal abscess. Patient states since his surgery he did have another episode where he had swelling and pain back there but had an area that ruptured and had drainage. TRAVEL OUTSIDE OF THE [place] IN LAST 30 DAYS: No - HPI Patient complains to provider of: Rectal pain Onset: Yesterday Timing/Duration: Persistent Quality of pain: Achy Pain Level: 5 Exacerbated by: Sitting, Standing, Movement Similar symptoms previously: Yes Recently seen / treated by doctor: No - Related Data Allergies/Adverse Reactions: No Known Allergies Allergy (Verified 03/22/17 16:07) Past Medical History - General Information source: Patient - Social History Smoking Status: Current Every Day Smoker Frequency of alcohol use: Occasional Drug Abuse: None Occupation: [employer] Family History: Reviewed & Not Pertinent - Past Medical History Cardiac Medical History: Reports: Hx Hypertension - medicated Renal/ Medical History: Denies: Hx Peritoneal Dialysis Skin Medical History: Denies Hx MRSA, Reports Other - Perirectal abscess Psychiatric Medical History: Denies: Hx Depression Past Surgical History: Reports: Other - cyst removal from neck (pediatric); unknown further details Perirectal abs - Immunizations Immunizations up to date: Yes Hx Diphtheria, Pertussis, Tetanus Vaccination: Yes Review of Systems - Review of Systems Constitutional: No symptoms reported EENT: No symptoms reported Cardiovascular: No symptoms reported Respiratory: No symptoms reported. denies: Cough Gastrointestinal: Other - Perirectal tenderness. denies: Abdominal pain, Nausea , Vomiting Genitourinary: No symptoms reported. denies: Dysuria Male Genitourinary: No symptoms reported Musculoskeletal: No symptoms reported Skin: Other - Tender swelling to perirectal area Hematologic/Lymphatic: No symptoms reported Neurological/Psychological: No symptoms reported Physical Exam - Vital signs Vitals: Temp Pulse Resp BP Pulse Ox 100.0 F 85 16 152/99 H 97 10/20/17 14:25 10/20/17 14:25 10/20/17 14:25 10/20/17 14:25 10/20/17 14:25 - General General appearance: Appears well, Alert In distress: None - HEENT Head: Normocephalic Eyes: Normal Nasal: Normal Mouth/Lips: Normal Mucous membranes: Normal Neck: Normal, Supple. No: Lymphadenopathy - Respiratory Respiratory status: No respiratory distress Chest status: Nontender Breath sounds: Normal. No: Rales, Rhonchi, Stridor, Wheezing Chest palpation: Normal - Cardiovascular Rhythm: Regular Heart sounds: S1 appreciated, S2 appreciated Murmur: No - Abdominal Inspection: Normal Distension: No distension Bowel sounds: Normal Tenderness: Nontender Organomegaly: No organomegaly - Rectal Tenderness: Yes Notes: Patient with pointing perirectal abscess to the right buttock area, large area surrounding induration. RN as standby - Back Back: Normal, Nontender. No: CVA tenderness - Extremities General upper extremity: Normal inspection, Normal strength General lower extremity: Normal inspection, Normal strength - Neurological Neuro grossly intact: Yes Cognition: Normal [place] Coma Scale Eye Opening: Spontaneous [place] Coma Scale Verbal: Oriented [place] Coma Scale Motor: Obeys Commands [place] Coma Scale Total: 15 - Psychological Associated symptoms: Normal affect, Normal mood - Skin Skin Temperature: Warm Skin Moisture: Dry Skin irregularity: Abscess - Perirectal area Course - Re-evaluation Re-evalutation: 10/20/17 14:[address] Johnson who agrees to evaluate patient. Recommends obtaining blood cultures and starting Flagyl and Cipro. 10/20/17 15:23 Dr. Johnson evaluated patient and plans to taken to the operating room about 6 hours after patient last had anything to drink which was 11 AM. - Vital Signs Vital signs: Temp Pulse Resp BP Pulse Ox 100.0 F 85 16 152/99 H 97 10/20/17 14:25 10/20/17 14:25 10/20/17 14:25 10/20/17 14:25 10/20/17 14:25 - Laboratory Result Diagrams: 10/20/17 15:08 10/20/17 15:08 Laboratory results interpreted by me: 10/20/17 10/20/17 15:08 15:08 WBC 15.3 H RDW 14.2 H Seg Neutrophils % 80.8 H Lymphocytes % 9.3 L Absolute Neutrophils 12.4 H Sodium 145.6 H Glucose 118 H Labs- Entire Visit 10/20/17 10/20/17 15:08 15:08 WBC 15.3 H RBC 4.86 Hgb 14.9 Hct 43.7 MCV 90 MCH 30.7 MCHC 34.1 RDW 14.2 H Plt Count 172 Seg Neutrophils % 80.8 H Lymphocytes % 9.3 L Monocytes % 8.7 Eosinophils % 1.0 Basophils % 0.2 Absolute Neutrophils 12.4 H Absolute Lymphocytes 1.4 Absolute Monocytes 1.3 Absolute Eosinophils 0.2 Absolute Basophils 0.0 Sodium 145.6 H Potassium 4.0 Chloride 106 Carbon Dioxide 27 Anion Gap 13 BUN 10 Creatinine 0.99 Est GFR ( Amer) > 60 Est GFR (Non-Af Amer) > 60 Glucose 118 H Calcium 9.5 Discharge - Discharge Clinical Impression: Perirectal abscess Condition: Stable Disposition: ADMITTED OBSERVATION Admitting Provider: Surgicalist Unit Admitted: Medical Floor
[2017-10-20] MEDS ORDERED: CIPROFLOXACIN 400 MG/D5W RTU 400 MG/200 ML RTUPB IV SCH ×2 (15:00→22:00)
[2017-10-20] MEDS ORDERED: FENTANYL CITRATE INJ/PF 100 MCG/2 ML AMPUL IV ONE (15:23)
[2017-10-20 15:28] LABS: ABSOLUTE EOSINOPHILS # (AUTO) 0.2 10^3/uL (0.0-0.6); ABSOLUTE LYMPHOCYTES (AUTO) 1.4 10^3/uL (0.5-4.7); ABSOLUTE MONOCYTES (AUTO) 1.3 10^3/uL (0.1-1.4); ABSOLUTE NEUT (AUTO) 12.4 10^3/uL (1.7-8.2); BASOPHILS % (AUTO) 0.2 % (0-2); HEMATOCRIT 43.7 % (37.9-51.0); HEMOGLOBIN 14.9 g/dL (13.5-17.0); LYMPHOCYTES % (AUTO) 9.3 % (13-45); MEAN CORPUSCULAR HEMOGLOBIN 30.7 pg (27.0-33.4); MEAN CORPUSCULAR HGB CONC 34.1 g/dL (32.0-36.0); MEAN CORPUSCULAR VOLUME 90 fl (80-97); MONOCYTES % (AUTO) 8.7 % (3-13); PLATELET COUNT 172 10^3/uL (150-450); RED BLOOD COUNT 4.86 10^6/uL (4.35-5.55); RED CELL DISTRIBUTION WIDTH 14.2 % (11.5-14.0); SEGMENTED NEUTROPHILS % (AUTO) 80.8 % (42-78); TOTAL CELLS COUNTED % (AUTO) 100 %; WHITE BLOOD COUNT 15.3 10^3/uL (4.0-10.5)
[2017-10-20] MEDS ORDERED: NORMAL SALINE 1000 ML 1,000 ML IV PRN ×2 (15:35→18:04)
[2017-10-20 15:53] LABS: ANION GAP 13 (5-19); BLOOD UREA NITROGEN 10 mg/dL (7-20); CALCIUM 9.5 mg/dL (8.4-10.2); CARBON DIOXIDE 27 mmol/L (22-30); CHLORIDE 106 mmol/L (98-107); GLUCOSE 118 mg/dL (75-110); SODIUM 145.6 mmol/L (137-145)
[2017-10-20] MEDS ORDERED: FENTANYL CITRATE INJ/PF 250 MCG/5 ML AMPULE ONE (15:53)
[2017-10-20] MEDS ORDERED: PROPOFOL INJ 200 MG/20 ML VIAL IV ONE (15:54)
[2017-10-20] MEDS ORDERED: DEXMEDETOMIDINE INJ 80 MCG/20 ML VIAL IV ONE (15:54)
[2017-10-20] MEDS ORDERED: MIDAZOLAM 2 MG/2 ML INJ ONE (15:54)
[2017-10-20] MEDS ORDERED: ACETAMINOPHEN 100 ML IV ONE (15:54)
[2017-10-20] MEDS ORDERED: EPHEDRINE SULFATE INJ 50 MG/1 ML AMPULE ONE (15:54)
--- NOTE | 2017-10-20 16:01 | PDOC H&P ---
History of Present Illness Admission Date/PCP: 10/20/17 15:38 Patient complains of: right junior-rectal pains History of Present Illness: KOURTNEY HARRINGTON is a 47 year old male c/o right junior-rectal pains just over a week ago which spontaneously drained after about 1 & a half days of pains. Then 2 days ago started to have pains around the same site on the right per-rectal area and getting worse today. He had a junior-rectal abscess drained last year. Past Medical History Cardiac Medical History: Reports: Hypertension - medicated Skin Medical History: Reports: Other - Perirectal abscess Psychiatric Medical History: Denies: Depression Past Surgical History Past Surgical History: Reports: Other - cyst removal from neck (pediatric); unknown further details Perirectal abs Social History Smoking Status: Current Every Day Smoker Cigarettes Packs Per Day: 0.5 Frequency of Alcohol Use: Social - 3-4 bottles of beer q other day Hx Recreational Drug Use: No Drugs: None Hx Prescription Drug Abuse: No Family History Family History: Reviewed & Not Pertinent Parental Family History Reviewed: Yes - gdmother had DM Children Family History Reviewed: No Sibling(s) Family History Reviewed.: No Medication/Allergy Home Medications: No Home Medications 03/22/17 Allergies/Adverse Reactions: No Known Allergies Allergy (Verified 03/22/17 16:07) Review of Systems Constitutional: PRESENT: other - denies fever/chills Ears: PRESENT: other - no visual/hearing changes Cardiovascular: PRESENT: other - no chest pains Respiratory: PRESENT: other - no dyspnea Gastrointestinal: PRESENT: other - oeri-rectal pains Genitourinary: PRESENT: other - no dysuria Neurological: PRESENT: other - no seizures Endocrine: PRESENT: other - no polyuria Hematologic/Lymphatic: PRESENT: other - no easy bruising Physical Exam Vital Signs: Temp Pulse Resp BP Pulse Ox 100.0 F 85 16 152/99 H 97 10/20/17 14:25 10/20/17 14:25 10/20/17 14:25 10/20/17 14:25 10/20/17 14:25 General appearance: PRESENT: mild distress Head exam: PRESENT: atraumatic Eye exam: PRESENT: conjunctiva pink Mouth exam: PRESENT: moist Neck exam: PRESENT: full ROM Respiratory exam: PRESENT: clear to auscultation jessica Cardiovascular exam: PRESENT: RRR Pulses: PRESENT: normal radial pulses Vascular exam: PRESENT: normal capillary refill GI/Abdominal exam: PRESENT: soft Rectal exam: PRESENT: tenderness - right junior-rectal area Extremities exam: PRESENT: full ROM Musculoskeletal exam: PRESENT: ambulatory Neurological exam: PRESENT: alert, oriented to person, oriented to place, oriented to time, oriented to situation Psychiatric exam: PRESENT: appropriate affect Skin exam: PRESENT: normal color, warm Assessment & Plan - Time Time Spent: 30 to 50 Minutes - Plan Summary Plan Summary: NPO IV antibiotics Hydrate For I&D junior-rectal abscess
[2017-10-20] MEDS ORDERED: FENTANYL CITRATE INJ/PF 100 MCG/2 ML AMPUL ONE (17:24)
[2017-10-20] MEDS ORDERED: ONDANSETRON HCL INJ/PF 4 MG/2 ML SDV IV PRN ×2 (17:27→18:03)
[2017-10-20] MEDS ORDERED: MEPERIDINE HCL/PF INJ 25 MG/1 ML DISP.SYRIN IV PRN (17:27)
[2017-10-20] MEDS ORDERED: DIPHENHYDRAMINE HCL 50 MG/ML VIAL IV PRN (17:27)
[2017-10-20] MEDS ORDERED: PROMETHAZINE HCL INJ 25 MG/1 ML VIAL IV PRN (17:27)
[2017-10-20] MEDS ORDERED: FENTANYL CITRATE INJ/PF 100 MCG/2 ML AMPUL IV PRN ×2 (17:27)
[2017-10-20] MEDS ORDERED: MORPHINE SULFATE 10 MG/ML INJ IV PRN (18:03)
--- NOTE | 2017-10-20 20:00 | OPERATIVE REPORT E ---
Operative Report NAME: KOURTNEY HARRINGTON : 1970 AGE: 47Y DATE OF SURGERY: 10/20/2017 ROOM: 424 PREOPERATIVE DIAGNOSIS: Right perirectal abscess. POSTOPERATIVE DIAGNOSIS: Right perirectal abscess. PROCEDURE: Incision and drainage of right perirectal abscess with pulse lavage and packing. SURGEON: FEROZ GARCIA M.D. ANESTHESIA: General. INDICATIONS: This is a 47-year-old male who noted to have a perirectal abscess drained about 7 months ago. Just over a week ago noted to have another right perirectal abscess which drained spontaneously, and the patient felt relief. However, again, in the past 2 days, he developed pains in the right perirectal abscess and went to the ED. DESCRIPTION OF PROCEDURE: After adequate general anesthesia, the patient was placed in lithotomy position, and the perirectal area prepped and draped in the usual sterile fashion. Appropriate timeout was called. Next, the right perirectal area has a very thin skin that has started to drain. The area about 2 cm was relatively thin and incised. There is some abscess noted, and cultures were obtained. The cavity was then digitally inspected and appears to be going towards the posterior rectum and lateral to the rectum making about a 6 to 7 cm cavity. This may likely be a chronic cavity. The surrounding area is noted to be firm. Rectal exam visualization but no definite fistula could be identified. At any rate, the cavity was subsequently pulse lavaged with 2 liters of saline. The cavity was then packed with two thirds of a bottle of half inch Iodoform gauze. Sterile 4 x 4's were placed and ABD pad, and a thin panty-brief was used to keep the dressing in place. The patient tolerated the procedure well. Needle, instrument, and sponge counts were all correct and estimated blood loss about 20 mL. The patient tolerated the procedure well and brought to the recovery room in satisfactory condition. DICTATING PHYSICIAN: FEROZ AGRCIA M.D. [id number] PHY#: [id number] ID: [id number] JOB#: [id number] ACCT: [id number] cc:FEROZ GARCIA M.D. > [facility]
[2017-10-20] MEDS ORDERED: METRONIDAZOLE 500 MG/NS RTU 100 ML IV SCH (22:00)
[2017-10-21] MEDS: METRONIDAZOLE 500 MG/NS RTU 100 ML IV SCH ×2 (01:45→09:57)
[2017-10-21] MEDS: OXYCODONE-ACETAMINOPHEN 5-325 MG TABLET PO PRN ×2 (04:58→11:31)
[2017-10-21 05:51] LABS: ABSOLUTE LYMPHOCYTES (AUTO) 0.9 10^3/uL (0.5-4.7); ABSOLUTE MONOCYTES (AUTO) 0.7 10^3/uL (0.1-1.4); ABSOLUTE NEUT (AUTO) 14.6 10^3/uL (1.7-8.2); BASOPHILS % (AUTO) 0.2 % (0-2); HEMATOCRIT 41.7 % (37.9-51.0); HEMOGLOBIN 14.1 g/dL (13.5-17.0); LYMPHOCYTES % (AUTO) 5.4 % (13-45); MEAN CORPUSCULAR HGB CONC 33.9 g/dL (32.0-36.0); MEAN CORPUSCULAR VOLUME 91 fl (80-97); MONOCYTES % (AUTO) 4.5 % (3-13); PLATELET COUNT 172 10^3/uL (150-450); RED BLOOD COUNT 4.56 10^6/uL (4.35-5.55); RED CELL DISTRIBUTION WIDTH 14.1 % (11.5-14.0); SEGMENTED NEUTROPHILS % (AUTO) 89.9 % (42-78); TOTAL CELLS COUNTED % (AUTO) 100 %; WHITE BLOOD COUNT 16.3 10^3/uL (4.0-10.5)
[2017-10-21] MEDS ORDERED: CIPROFLOXACIN 400 MG/D5W RTU 400 MG/200 ML RTUPB IV SCH (06:00)
[2017-10-21 12:57] VITALS: BP 141/96
--- NOTE | 2017-10-21 15:45 | PDOC PROGRESS REPORT ---
Subjective Progress Note for:: 10/21/17 Subjective:: Pains at the I&D site Reason For Visit: PERIRECTAL ABSCESS Physical Exam Vital Signs: Temp Pulse Resp BP Pulse Ox 98.1 F 74 18 141/96 H 98 10/21/17 12:00 10/21/17 12:00 10/21/17 12:00 10/21/17 12:00 10/21/17 12:00 Intake & Output 10/20/17 10/21/17 10/22/17 06:59 06:59 06:59 Intake Total 950 866 Output Total 30 550 Balance 920 316 Weight 102.5 kg Exam: Afebrile. WBC same as pre-op Packing removed with minimal bleeding. Discharge on po cipro & Flagyl To start Hot Sitz bath in Hospital then continue at home QID x 2-3 weeks Follow up surgical clinic in 2 weeks Results Laboratory Results: 10/21/17 05:19 10/21/17 05:19 WBC 16.3 H RBC 4.56 Hgb 14.1 Hct 41.7 MCV 91 MCH 31.0 MCHC 33.9 RDW 14.1 H Plt Count 172 Seg Neutrophils % 89.9 H Lymphocytes % 5.4 L Monocytes % 4.5 Eosinophils % 0.0 Basophils % 0.2 Absolute Neutrophils 14.6 H Absolute Lymphocytes 0.9 Absolute Monocytes 0.7 Absolute Eosinophils 0.0 Absolute Basophils 0.0
--- NOTE | 2017-10-21 23:30 | DISCHARGE SUMMARY E ---
Discharge Summary NAME: KOURTNEY HARRINGTON : 1970 AGE: 47Y ADMITTED: 10/20/2017 DISCHARGED: 10/21/2017 FINAL DIAGNOSIS: Recurrent right perirectal abscess. PROCEDURE DONE: Incision and drainage of right perirectal abscess on 10/20/17. HOSPITAL COURSE: The patient was admitted on 10/20/17 and underwent incision and drainage of right perirectal abscess. The packing was removed today and no active bleeding noted. He was continued on IV antibiotics and also given a prescription for p.o. Cipro and Flagyl for the next 5 days. He was started on hot sitz bath prior to discharge and to continue the hot sitz bath 3-4 times a day for the next 2-3 weeks. The patient also to be followed at the surgical clinic in 2 weeks. DICTATING PHYSICIAN: FEROZ GARCIA M.D. [id number] PHY#: [id number] ID: [id number] JOB#: [id number] ACCT: [id number] cc:Christofer LEWIS MD, M.D. [facility],
== END 2017-10-21 16:33 | disposition home or self-care (01) ==
LOC: ER 14:13 → EH 15:38 → 4S 19:46
PROVIDERS: ATTEND Surgery
PROC: 0HD8XZZ Extraction of Buttock Skin, External Approach (ICD-10-PCS; 2017-10-20)
PROC: 0D9P0ZX Drainage of Rectum, Open Approach, Diagnostic (ICD-10-PCS; principal; 2017-10-20 17:30)
DX: K61.1 Rectal abscess (principal); I10 Essential (primary) hypertension; F17.210 Nicotine dependence, cigarettes, uncomplicated; Z98.890 Other specified postprocedural states
CPT/HCPCS: 99284; 36415 ×2; 87040; 87070; 87205; 85025 ×2; 87075; 87077; 80048; 87186; 46040; 11000; G0378 ×2; J2250; J1100; J1885; J3010 ×2; J2765; J2270; J0330; J2405; J2704; J0744; J0131; J3490 ×2; 902

== ENCOUNTER 2018-10-19 23:38 | Inpatient (IN) | payer SELFPAY ==
[2018-10-20] MEDS ORDERED: NORMAL SALINE 1000 ML 1,000 ML IV ONE ×2 (01:06→03:03)
[2018-10-20] MEDS ORDERED: CLINDAMYCIN 600 MG/D5W RTU 600 MG/50 ML RTUPB IV ONE (01:07)
--- NOTE | 2018-10-20 01:12 | ER Document Report ---
ED General - General Chief Complaint: Abscess Stated Complaint: RIGHT BUTTOCKS/GROIN SWELLING Time Seen by Provider: 10/20/18 00:59 Notes: Patient is a 48-year-old male who presents with complaint of pain and swelling in his right gluteal region going near his rectum. He has had 2 previous perirectal abscesses drained by Dr. Ramirez here. Last one was in October of last year. He denies any fevers or vomiting. He first noticed some swelling there approximately 2 days ago. He was given come to the ER to get drained but he had to work and therefore worked in the swelling has progressed and now with he has extensive swelling and pain in the foreskin to the ER. Subjective fevers at home. No vomiting. He denies history of diabetes. No other complaints at this time. TRAVEL OUTSIDE OF THE [place] IN LAST 30 DAYS: No - Related Data Allergies/Adverse Reactions: No Known Allergies Allergy (Verified 03/22/17 16:07) Past Medical History - Social History Smoking Status: Never Smoker Frequency of alcohol use: None Drug Abuse: None Family History: Reviewed & Not Pertinent - Past Medical History Cardiac Medical History: Reports: Hx Hypertension - medicated Renal/ Medical History: Denies: Hx Peritoneal Dialysis Skin Medical History: Denies Hx MRSA Psychiatric Medical History: Denies: Hx Depression Past Surgical History: Reports: Other - cyst removal from neck (pediatric); unknown further details Perirectal abs - Immunizations Immunizations up to date: Yes Hx Diphtheria, Pertussis, Tetanus Vaccination: Yes Review of Systems - Review of Systems Notes: My Normal Review Basic REVIEW OF SYSTEMS: CONSTITUTIONAL : Subjective fever. Denies recent illness. RESPIRATORY: Denies cough, cold, or chest congestion. Denies shortness of breath, difficulty breathing, or wheezing. GASTROINTESTINAL: Denies abdominal pain. Denies nausea, vomiting, or diarrhea. GENITOURINARY: Denies difficulty urinating, painful urination, burning, frequency, or blood in urine. MUSCULOSKELETAL: Swelling and pain over left gluteal region. SKIN: Denies rash or skin lesions. NEUROLOGICAL: Denies altered mental status or loss of consciousness. Denies headache. Denies weakness or paralysis or loss of use of either side. Denies problems with gait or speech. Denies sensory or motor loss. ALL OTHER SYSTEMS REVIEWED AND NEGATIVE. Physical Exam - Vital signs Vitals: Temp Pulse Resp BP Pulse Ox 100 F 102 H 16 204/107 H 97 10/20/18 00:02 10/20/18 00:02 10/20/18 00:02 10/20/18 00:02 10/20/18 00:02 - Notes Notes: General Appearance: Well nourished, alert, cooperative, no acute distress, no obvious discomfort. Well-appearing. Vitals: reviewed, See vital signs table. Eyes: PERRL, EOMI, Conjuctiva clear Mouth: No decreasd moisture Lungs: No wheezing, No rales, No rhonci, No accessory muscle use, good air exchange bilaterally. Heart: Normal rate, Regular rythm, No murmur, no rub Abdomen: Normal BS, soft, No rigidity, No abdominal tenderness, No guarding, no rebound, no abdominal masses, no organomegaly Extremities: Patient has large amount of gluteal swelling and induration over the left gluteal region that extends near the rectal area. Is consistent with his previous history of extending perirectal abscesses. Skin: warm, dry, appropriate color, no rash Neuro: speech clear, oriented x 3, normal affect, responds appropriately to questions. Course - Re-evaluation Re-evalutation: 10/20/18 03:[address] Manuel, surgeon, who agrees to come evaluate the patient. 10/20/18 06:37 Dictation of this chart was performed using voice recognition software; therefore, there may be some unintended grammatical errors. - Vital Signs Vital signs: Temp Pulse Resp BP Pulse Ox 100 F 102 H 16 204/107 H 97 10/20/18 00:02 10/20/18 00:02 10/20/18 00:02 10/20/18 00:02 10/20/18 00:02 - Laboratory Result Diagrams: 10/20/18 01:45 10/20/18 01:45 Laboratory results interpreted by me: 10/20/18 10/20/18 10/20/18 01:45 01:45 01:45 WBC 14.6 H Plt Count 135 L Seg Neutrophils % 81.8 H Lymphocytes % 8.1 L Absolute Neutrophils 12.0 H APTT 38.4 H Potassium 3.5 L Chloride 110 H Discharge - Discharge Clinical Impression: Perirectal abscess Condition: Good Disposition: ADMITTED OBSERVATION Admitting Provider: Surgicalist Unit Admitted: Surgical Floor
[2018-10-20] MEDS ORDERED: MORPHINE SULFATE 10 MG/ML INJ IV ONE ×2 (01:23→03:06)
[2018-10-20 01:58] LABS: ABSOLUTE EOSINOPHILS # (AUTO) 0.2 10^3/uL (0.0-0.6); ABSOLUTE LYMPHOCYTES (AUTO) 1.2 10^3/uL (0.5-4.7); TOTAL CELLS COUNTED % (AUTO) 100 %
[2018-10-20 02:02] LABS: INTERNATIONAL RATION (INR) 0.99; PROTHROMBIN TIME 13.6 SEC (11.4-15.4)
[2018-10-20 02:03] LABS: ABSOLUTE MONOCYTES (AUTO) 1.3 10^3/uL (0.1-1.4); BASOPHILS % (AUTO) 0.2 % (0-2); EOSINOPHILS % (AUTO) 1.1 % (0-6); HEMOGLOBIN 13.8 g/dL (13.5-17.0); LYMPHOCYTES % (AUTO) 8.1 % (13-45); MEAN CORPUSCULAR HEMOGLOBIN 31.2 pg (27.0-33.4); MEAN CORPUSCULAR HGB CONC 34.5 g/dL (32.0-36.0); MEAN CORPUSCULAR VOLUME 90 fl (80-97); MONOCYTES % (AUTO) 8.8 % (3-13); PARTIAL THROMBOPLASTIN TIME 38.4 SEC (23.5-35.8); PLATELET COUNT 135 10^3/uL (150-450); RED BLOOD COUNT 4.42 10^6/uL (4.35-5.55); RED CELL DISTRIBUTION WIDTH 13.8 % (11.5-14.0); SEGMENTED NEUTROPHILS % (AUTO) 81.8 % (42-78); WHITE BLOOD COUNT 14.6 10^3/uL (4.0-10.5)
[2018-10-20 02:15] LABS: ANION GAP 7 (5-19); BLOOD UREA NITROGEN 12 mg/dL (7-20); CALCIUM 9.4 mg/dL (8.4-10.2); CARBON DIOXIDE 25 mmol/L (22-30); CHLORIDE 110 mmol/L (98-107); GLUCOSE 106 mg/dL (75-110); POTASSIUM 3.5 mmol/L (3.6-5.0); SODIUM 141.7 mmol/L (137-145)
--- NOTE | 2018-10-20 02:51 | RADIOLOGY REPORT (SQ) ---
EXAM DESCRIPTION: CT PELVIS WITH IV CONTRAST COMPLETED DATE/TME: 10/20/2018 01:05 CLINICAL HISTORY: 48 years, Male, gluteal abscess COMPARISON: 03/22/2017 CT pelvis TECHNIQUE: 276 Images stored on PACS. All CT scanners at this facility use dose modulation, iterative reconstruction, and/or weight based dosing when appropriate to reduce radiation dose to as low as reasonably achievable (ALARA). [facility]: Dose Right [facility]: CareDose [facility]: Dose Right [facility]: Teradose 4D [facility]: Smart Technologies LIMITATIONS: None. FINDINGS: Limited evaluation of intrapelvic structures demonstrates a normal appendix. Subcutaneous inflammatory change associated with the right gluteal region with a complex air-fluid collection measuring 2.8 x 1.7 cm consistent with perianal abscess. The ischiorectal fat planes are preserved. No acute osseous abnormality. No free fluid in the pelvis IMPRESSION: Small right perianal abscess with associated subcutaneous edema and inflammation. TECHNICAL DOCUMENTATION: Quality ID # 436: Final reports with documentation of one or more dose reduction techniques (e.g., Automated exposure control, adjustment of the mA and/or kV according to patient size, use of iterative reconstruction technique) copyright 2010 [employer]- All Rights Reserved
[2018-10-20] MEDS ORDERED: HYDRALAZINE HCL INJ/PF 20 MG/1 ML SDV IV ONE (03:10)
[2018-10-20] MEDS ORDERED: DEXTROSE 5%-LACTATED RINGERS 1,000 ML IV PRN (04:03)
[2018-10-20] MEDS ORDERED: ONDANSETRON HCL INJ/PF 4 MG/2 ML SDV IV PRN (04:03)
--- NOTE | 2018-10-20 04:26 | PDOC H&P ---
History of Present Illness History of Present Illness: KOURTNEY HARRINGTON is a 48 year old male who presents with complaint of pain and swelling in his right gluteal region going near his rectum. He has had 2 previous perirectal abscesses isabelle ined by Dr. Ramirez here. Last one was in October of last year. He denies any fevers or vomiting. He first noticed some swelling there approximately 2 days ago. He was given come to the ER to get drained but he had to work and therefore worked in the swelling has progressed and now with he has extensive swelling and pain which prompted hm to come to the ER. Subjective fevers at home. No vomiting. He denies history of diabetes. No other complaints at this time he states he feels this is worse than last time he had it drained by Dr Ramirez. Past Medical History Cardiac Medical History: Reports: Hypertension - medicated Psychiatric Medical History: Denies: Depression Past Surgical History Past Surgical History: Reports: Other - cyst removal from neck (pediatric); unknown further details Perirectal abs Social History Smoking Status: Never Smoker Frequency of Alcohol Use: Occasional Hx Recreational Drug Use: No Drugs: None Hx Prescription Drug Abuse: No Family History Family History: Reviewed & Not Pertinent Parental Family History Reviewed: Yes Children Family History Reviewed: NA Sibling(s) Family History Reviewed.: NA Medication/Allergy Home Medications: No Home Medications 10/20/17 Allergies/Adverse Reactions: No Known Allergies Allergy (Verified 03/22/17 16:07) Review of Systems Constitutional: PRESENT: fever(s) Eyes: PRESENT: as per HPI, other Ears: PRESENT: other - no hearing changes Nose, Mouth, and Throat: PRESENT: other - no sore throat, no difficulty swallowing Cardiovascular: PRESENT: other - no c/o chest pain Respiratory: PRESENT: other - no shortness of breath Gastrointestinal: PRESENT: other - no abd pain, no bloating , Genitourinary: PRESENT: other - no difficulty urinating Musculoskeletal: PRESENT: other - no joint weakness, no back pain Neurological: ABSENT: abnormal gait, abnormal speech, confusion, dizziness, focal weakness, syncope Endocrine: PRESENT: other - no cold or heat intolerance Hematologic/Lymphatic: PRESENT: other - no abnormal bleeding or easy brusing Physical Exam Vital Signs: Temp Pulse Resp BP Pulse Ox 100 F 102 H 16 204/107 H 97 10/20/18 00:02 10/20/18 00:02 10/20/18 00:02 10/20/18 00:02 10/20/18 00:02 Intake & Output 10/18/18 10/19/18 10/20/18 06:59 06:59 06:59 Intake Total 1050 Balance 1050 Weight 104.6 kg General appearance: PRESENT: mild distress Head exam: PRESENT: normocephalic Eye exam: PRESENT: EOMI Mouth exam: PRESENT: moist Neck exam: PRESENT: full ROM Respiratory exam: PRESENT: clear to auscultation jessica Cardiovascular exam: PRESENT: RRR Pulses: PRESENT: normal radial pulses, normal femoral pulses Vascular exam: PRESENT: pallor GI/Abdominal exam: PRESENT: soft Rectal exam: PRESENT: other - rt sided ischial swelling and tenderness to palaption, digital rectal deferred to or Extremities exam: PRESENT: full ROM Musculoskeletal exam: PRESENT: full ROM Neurological exam: PRESENT: alert, awake, oriented to person, oriented to place, oriented to time, oriented to situation Psychiatric exam: PRESENT: appropriate affect Skin exam: PRESENT: dry Results Laboratory Results: 10/20/18 01:45 10/20/18 01:45 10/20/18 10/20/18 01:45 01:45 WBC 14.6 H RBC 4.42 Hgb 13.8 Hct 40.0 MCV 90 MCH 31.2 MCHC 34.5 RDW 13.8 Plt Count 135 L Seg Neutrophils % 81.8 H Lymphocytes % 8.1 L Monocytes % 8.8 Eosinophils % 1.1 Basophils % 0.2 Absolute Neutrophils 12.0 H Absolute Lymphocytes 1.2 Absolute Monocytes 1.3 Absolute Eosinophils 0.2 Absolute Basophils 0.0 Sodium 141.7 Potassium 3.5 L Chloride 110 H Carbon Dioxide 25 Anion Gap 7 BUN 12 Creatinine 1.17 Est GFR ( Amer) > 60 Est GFR (Non-Af Amer) > 60 Glucose 106 Calcium 9.4 Impressions: Pelvis CT 10/20/18 01:05 IMPRESSION: Small right perianal abscess with associated subcutaneous edema and inflammation. TECHNICAL DOCUMENTATION: Quality ID # 436: Final reports with documentation of one or more dose reduction techniques (e.g., Automated exposure control, adjustment of the mA and/or kV according to patient size, use of iterative reconstruction technique) copyright 2011 [employer]- All Rights Reserved Assessment & Plan - Plan Summary Plan Summary: 48 y/o male with recurrent perirectal abscess s/p previous drainage last year Plan Exam under anesthesia and incision and drainage. I disucssed risks and benifits with pt including bleeding, incontinance, recurrence, infection, pelvic sepsis, fistula formation, need for additional surgery he understands and agrees to proceed.
[2018-10-20] MEDS ORDERED: CEFAZOLIN 2 GM/D5W RTU 2 GM/50 ML RTUPB IV ONE ×2 (04:30→06:06)
[2018-10-20] MEDS: METRONIDAZOLE 500 MG/NS RTU 500 MG/100 ML RTUPB IV SCH ×3 (06:48→21:40)
[2018-10-20] MEDS ORDERED: MIDAZOLAM 2 MG/2 ML INJ ONE (07:35)
[2018-10-20] MEDS ORDERED: ACETAMINOPHEN 1,000 MG/100 ML RTUPB IV ONE (07:35)
[2018-10-20] MEDS ORDERED: BUPIVACAINE HCL 0.25 % INJ/PF (2.5 MG/1 ML) 30 ML VIAL ONE (07:35)
[2018-10-20] MEDS ORDERED: ONDANSETRON HCL INJ/PF 4 MG/2 ML SDV ONE (07:35)
[2018-10-20] MEDS ORDERED: PROPOFOL INJ 200 MG/20 ML VIAL IV ONE (07:35)
[2018-10-20] MEDS ORDERED: FENTANYL CITRATE INJ/PF 100 MCG/2 ML AMPUL ONE (07:35)
[2018-10-20] MEDS ORDERED: BUPIVACAINE HCL 0.5%-EPI 1:200000 INJ/PF 30 ML VIAL ONE (07:35)
[2018-10-20] MEDS ORDERED: DIPHENHYDRAMINE HCL 50 MG/ML VIAL IV PRN (07:46)
[2018-10-20] MEDS ORDERED: MEPERIDINE HCL/PF INJ 25 MG/1 ML DISP.SYRIN IV PRN (07:46)
[2018-10-20] MEDS ORDERED: MORPHINE SULFATE 10 MG/ML INJ IV PRN (07:46)
[2018-10-20] MEDS ORDERED: PROMETHAZINE HCL INJ 25 MG/1 ML VIAL IV PRN (07:46)
[2018-10-20] MEDS ORDERED: FENTANYL CITRATE INJ/PF 100 MCG/2 ML AMPUL IV PRN ×3 (07:46)
--- NOTE | 2018-10-20 08:38 | Operative Report ---
Nonrecallable Operative Report DATE OF SURGERY: 10/20/18 PREOPERATIVE DIAGNOSIS: perirectal abscess POSTOPERATIVE DIAGNOSIS: perirectal abscess OPERATION: exam under anesthesia and incision, drainage of perirectal abscess ANESTHESIA: GA COMPLICATIONS: none ESTIMATED BLOOD LOSS: 25cc INTRAOPERATIVE FINDINGS: see dictation PROCEDURE: see dictation
[2018-10-20] MEDS ORDERED: CEFAZOLIN 2 GM/D5W RTU 2 GM/50 ML RTUPB IV SCH (09:00)
--- NOTE | 2018-10-20 09:29 | OPERATIVE REPORT E ---
Operative Report NAME: KOURTNEY HARRINGTON : 1970 AGE: 48Y DATE OF SURGERY: 10/20/2018 ROOM: PREOPERATIVE DIAGNOSIS: PERIRECTAL ABSCESS. POSTOPERATIVE DIAGNOSIS: PERIRECTAL ABSCESS. OPERATION: EXAM UNDER ANESTHESIA, INCISION AND DRAINAGE OF PERIRECTAL ABSCESS. SURGEON: HUGO VALLECILLO M.D. INDICATIONS FOR OPERATION: This is a 48-year-old male who presents about a year after a previous incision and drainage of a perirectal abscess on his right buttock perianal area. He was seen in the emergency room and noted to have an elevated white count and swelling of his right buttock, and a CT scan which was confirmatory for an abscess. He was therefore scheduled for this procedure. PROCEDURE: The patient was brought to the operating room in awake, alert, and stable condition, and placed on the operating table in supine position. Induced under general anesthesia and intubated. He was then placed in a high lithotomy position. After adequate prep and drape and appropriate time out with site verification, we used the anoscope and passed it into the rectum and examined all 4 quadrants. Did not note any internal fistula or drainage of any pus. There was some swelling over his right ischium and it was significant compared to the left side. It was in the 3 o'clock position. I then therefore replaced the anoscope and placed that with visualization of the 3 o'clock position and with digital compression did not note any internal fistulous drainage. I then made an incision over the abscess about 2 cm from the anal verge, just distal to the previous scar made last year, and carried our dissection down to subcutaneous tissue into the ischiorectal space. There was a brisk output of stewart/whitish purulent fluid that emanated from the wound. The bone was then digitalized with the ischiorectal fat and then irrigated with normal saline. Good drainage of the purulent material. We then packed the space with Iodoform soaked strip gauze, and a sterile dressing was applied to complete the procedure. IMPRESSION: I suspect that he may develop a fistula secondary to the 2nd incision and drainage of this abscess that was in the same location as done previously. Also, the patient will require a colonoscopy. The patient will follow up with me in the office after his discharge, for scheduling of that. DICTATING PHYSICIAN: HUGO VALLECILLO M.D. [id number] PHY#: [id number] ID: [id number] JOB#: [id number] ACCT: [id number] cc:HUGO VALLECILLO M.D. >
[2018-10-20] MEDS ORDERED: METOPROLOL TARTRATE PF/INJ 5 MG/5 ML SDV IV ONE (11:48)
[2018-10-20] MEDS ORDERED: CEFAZOLIN SODIUM 2 GM in DEXTROSE 5%-WATER 100 ML IV SCH ×2 (12:00→15:00)
[2018-10-20] MEDS: MORPHINE SULFATE 10 MG/ML INJ IV PRN ×2 (15:44→22:03)
[2018-10-20] MEDS: FAMOTIDINE INJ/PF 20 MG/2 ML SDV IV SCH ×2 (15:44→21:39)
[2018-10-20] MEDS: CEFAZOLIN SODIUM 2 GM in DEXTROSE 5%-WATER 100 ML IV SCH (18:58)
[2018-10-20 22:29] LABS: ABSOLUTE EOSINOPHILS # (AUTO) 0.2 10^3/uL (0.0-0.6); ABSOLUTE LYMPHOCYTES (AUTO) 1.4 10^3/uL (0.5-4.7); ABSOLUTE MONOCYTES (AUTO) 1.1 10^3/uL (0.1-1.4); ABSOLUTE NEUT (AUTO) 10.4 10^3/uL (1.7-8.2); BASOPHILS % (AUTO) 0.3 % (0-2); EOSINOPHILS % (AUTO) 1.4 % (0-6); HEMATOCRIT 36.4 % (37.9-51.0); HEMOGLOBIN 12.9 g/dL (13.5-17.0); LYMPHOCYTES % (AUTO) 10.4 % (13-45); MEAN CORPUSCULAR HEMOGLOBIN 31.8 pg (27.0-33.4); MEAN CORPUSCULAR HGB CONC 35.4 g/dL (32.0-36.0); MEAN CORPUSCULAR VOLUME 90 fl (80-97); MONOCYTES % (AUTO) 8.1 % (3-13); PLATELET COUNT 126 10^3/uL (150-450); RED BLOOD COUNT 4.05 10^6/uL (4.35-5.55); RED CELL DISTRIBUTION WIDTH 14.1 % (11.5-14.0); SEGMENTED NEUTROPHILS % (AUTO) 79.8 % (42-78); TOTAL CELLS COUNTED % (AUTO) 100 %; WHITE BLOOD COUNT 13.1 10^3/uL (4.0-10.5)
[2018-10-20 22:45] LABS: ANION GAP 8 (5-19); BLOOD UREA NITROGEN 16 mg/dL (7-20); CALCIUM 9.1 mg/dL (8.4-10.2); CARBON DIOXIDE 27 mmol/L (22-30); CHLORIDE 104 mmol/L (98-107); GLUCOSE 98 mg/dL (75-110); POTASSIUM 3.6 mmol/L (3.6-5.0); SODIUM 139.4 mmol/L (137-145)
[2018-10-20] MEDS: HYDRALAZINE HCL INJ/PF 20 MG/1 ML SDV IV PRN (23:20)
[2018-10-21] MEDS: CEFAZOLIN SODIUM 2 GM in DEXTROSE 5%-WATER 100 ML IV SCH ×4 (00:58→20:55)
[2018-10-21] MEDS: MORPHINE SULFATE 10 MG/ML INJ IV PRN (01:14)
[2018-10-21] MEDS: HYDRALAZINE HCL INJ/PF 20 MG/1 ML SDV IV PRN ×3 (04:43→23:39)
[2018-10-21] MEDS: METRONIDAZOLE 500 MG/NS RTU 500 MG/100 ML RTUPB IV SCH ×3 (06:31→22:14)
[2018-10-21] MEDS ORDERED: HYDROCODONE/ACETAMINOPHEN 10-325 MG TABLET PO PRN (08:21)
[2018-10-21] MEDS ORDERED: MORPHINE SULFATE 10 MG/ML INJ IV PRN (09:03)
[2018-10-21] MEDS: FAMOTIDINE INJ/PF 20 MG/2 ML SDV IV SCH ×2 (11:08→21:37)
--- NOTE | 2018-10-21 21:22 | PDOC PROGRESS REPORT ---
Subjective Progress Note for:: 10/21/18 Reason For Visit: PERIRECTAL ABSCESS Physical Exam Vital Signs: Temp Pulse Resp BP Pulse Ox 98.1 F 97 18 148/94 H 98 10/21/18 19:49 10/21/18 19:49 10/21/18 19:49 10/21/18 19:49 10/21/18 19:49 Pulse Oximeter Continuous Start: 10/20/18 09:39 Freq: RTQ4 Status: Active Protocol: Document 10/21/18 16:00 [facility] (Rec: 10/21/18 16:41 [facility] [id number]) Pulse Oximetry Assessment Oxygen Saturation (92-100) 97 Oxygen Delivery Method Room Air Equipment Usage Equipment Standby Continuous SpO2 Machine # 10 Additional RT Notes Other spot check. pulse oximeter intended for [facility]. Intake & Output 10/20/18 10/21/18 10/22/18 06:59 06:59 06:59 Intake Total 1100 2550 200 Output Total 2440 Balance 1100 110 200 Weight 104.6 kg 103.7 kg Results Laboratory Results: 10/20/18 21:42 10/20/18 21:42 10/20/18 10/20/18 21:42 21:42 WBC 13.1 H RBC 4.05 L Hgb 12.9 L Hct 36.4 L MCV 90 MCH 31.8 MCHC 35.4 RDW 14.1 H Plt Count 126 L Seg Neutrophils % 79.8 H Lymphocytes % 10.4 L Monocytes % 8.1 Eosinophils % 1.4 Basophils % 0.3 Absolute Neutrophils 10.4 H Absolute Lymphocytes 1.4 Absolute Monocytes 1.1 Absolute Eosinophils 0.2 Absolute Basophils 0.0 Sodium 139.4 Potassium 3.6 Chloride 104 Carbon Dioxide 27 Anion Gap 8 BUN 16 Creatinine 1.29 H Est GFR ( Amer) > 60 Est GFR (Non-Af Amer) > 60 Glucose 98 Calcium 9.1 Impressions: Pelvis CT 10/20/18 01:05 IMPRESSION: Small right perianal abscess with associated subcutaneous edema and inflammation. TECHNICAL DOCUMENTATION: Quality ID # 436: Final reports with documentation of one or more dose reduction techniques (e.g., Automated exposure control, adjustment of the mA and/or kV according to patient size, use of iterative reconstruction technique) copyright 2011 [employer]- All Rights Reserved Assessment & Plan - Diagnosis (1) Perirectal abscess Is this a current diagnosis for this admission?: Yes - Plan Summary Plan Summary: This is a 48-year-old male status post drainage of a perirectal abscess. The patient is still complaining of significant amounts of pain today. He is having difficulty ambulating. I will start the patient on sitz baths twice daily and after bowel movements. Mobilize today. Aggressive pulmonary toilet. Home soon.
--- NOTE | 2018-10-22 07:51 | PDOC PROGRESS REPORT ---
Subjective Progress Note for:: 10/22/18 Subjective:: feels better up ambulating porsha sitz baths. Reason For Visit: PERIRECTAL ABSCESS Physical Exam Vital Signs: Temp Pulse Resp BP Pulse Ox 98.0 F 82 18 147/90 H 94 10/22/18 04:00 10/22/18 04:00 10/22/18 04:00 10/22/18 04:00 10/22/18 04:00 Pulse Oximeter Continuous Start: 10/20/18 09:39 Freq: RTQ4 Status: Active Protocol: Document 10/22/18 04:24 [facility] (Rec: 10/22/18 04:24 [facility] [id number]) Pulse Oximetry Assessment Equipment Usage Equipment Standby Continuous SpO2 Machine # 10 Intake & Output 10/21/18 10/22/18 10/23/18 06:59 06:59 06:59 Intake Total 2550 2250 Output Total 2440 Balance 110 2250 Weight 103.7 kg 102.5 kg General appearance: PRESENT: no acute distress Head exam: PRESENT: normocephalic Eye exam: PRESENT: EOMI Mouth exam: PRESENT: moist Neck exam: PRESENT: full ROM Respiratory exam: PRESENT: clear to auscultation jessica Cardiovascular exam: PRESENT: RRR Pulses: PRESENT: normal femoral pulses, normal dorsalis pedis pul Vascular exam: PRESENT: normal capillary refill GI/Abdominal exam: PRESENT: soft Rectal exam: PRESENT: other - rt butock markedly less swollen still with some drainage Extremities exam: PRESENT: full ROM Musculoskeletal exam: PRESENT: full ROM Neurological exam: PRESENT: alert, awake, oriented to person, oriented to time, oriented to situation Psychiatric exam: PRESENT: appropriate affect Skin exam: PRESENT: dry Results Laboratory Results: 10/20/18 21:42 10/20/18 21:42 Impressions: Pelvis CT 10/20/18 01:05 IMPRESSION: Small right perianal abscess with associated subcutaneous edema and inflammation. TECHNICAL DOCUMENTATION: Quality ID # 436: Final reports with documentation of one or more dose reduction techniques (e.g., Automated exposure control, adjustment of the mA and/or kV according to patient size, use of iterative reconstruction technique) copyright 2011 [employer]- All Rights Reserved Assessment & Plan - Diagnosis (1) Perirectal abscess Is this a current diagnosis for this admission?: Yes - Plan Summary Plan Summary: pt feels better able to do sitz baths afeb vss is still hypertensive was previously on bp med, does not remember spoke with Dr Elizalde, who recommended started on losartan 50mg/day plan will dc home on po keflex for 7 dayts and 30 day supply of losartan tramadol for pain meds will see back in 7-10 days
[2018-10-22] MEDS: METRONIDAZOLE 500 MG/NS RTU 500 MG/100 ML RTUPB IV SCH (08:09)
[2018-10-22] MEDS: CEFAZOLIN SODIUM 2 GM in DEXTROSE 5%-WATER 100 ML IV SCH (08:10)
[2018-10-22 08:56] VITALS: BP 158/92
--- NOTE | 2018-10-22 09:14 | DISCHARGE SUMMARY E ---
Discharge Summary NAME: KOURTNEY HARRINGTON : 1970 AGE: 48Y ADMITTED: 10/20/2018 DISCHARGED: 10/22/2018 The patient is being discharged from room 206. ADMISSION DIAGNOSIS: Perirectal abscess. DISCHARGE DIAGNOSES: 1. Perirectal abscess. 2. Hypertension. REASON FOR HOSPITALIZATION AND HOSPITAL COURSE: This is a 48-year-old male who presented early on 10/20/2018 with complaints of perianal pain. He was seen in the emergency room. A CT scan was obtained, which showed a large perirectal abscess. The patient had a previous history of a perirectal abscess in the same spot, which was drained about a year ago. He presented with complaints of pain and swelling of his right buttock. He was taken to the operating room for an exam under anesthesia and an incision and drainage of a right perirectal abscess. He tolerated the procedure well. He had a packing placed. It was removed the following day. He was continued on IV antibiotics and by 48 hours later, he was feeling well. His swelling had markedly decreased. He was doing sitz baths t.i.d. in his hospital room. Of note, he was noted to be hypertensive while in the hospital and upon questioning about his previous medications, he stated that he was on a blood pressure medicine in the past, but failed to follow up in the outpatient medical clinic and therefore, ran out of BP medications. He did not remember which one he was on and he did not have a followup in the outpatient medical clinic. A call was made to the hospitalist avionics systems engineer, Dr. Elizalde, who suggested starting him on losartan 50 mg p.o. daily, and he will follow up with his medical doctor as an outpatient. He is ready for a discharge home today. He has been given instructions to do t.i.d. sitz baths with Epsom salts and keep a dry dressing over the incision site. He will be given a followup appointment with me 7 to 10 days after discharge. He will also be given a prescription for Keflex 500 mg p.o. q.i.d., pain medicine, tramadol 50 mg p.o. q.6, and the losartan 50 mg p.o. daily. He was instructed to follow up with his primary doctor for blood pressure management. He wants to go back to work tomorrow, and I said that that would be fine. DICTATING PHYSICIAN: HUGO VALLECILLO M.D. [id number] PHY#: [id number] ID: [id number] JOB#: [id number] ACCT: [id number] cc:HUGO VALLECILLO M.D. MD SUN M.D E. Stef[facility], >
== END 2018-10-22 09:49 | disposition home or self-care (01) | DRG 989 ==
LOC: ER 23:38 → INTOOBSV 10-20 04:17 → OBSVTOIN 10-20 04:17 → EH 10-20 04:17 → 2N 10-20 09:25
PROVIDERS: ADMIT Surgery; ATTEND Surgery
PROC: 0J990ZZ Drainage of Buttock Subcutaneous Tissue and Fascia, Open Approach (ICD-10-PCS; principal; 2018-10-20 07:30)
DX: K61.1 Rectal abscess (principal); B96.20 Unspecified Escherichia coli [E. coli] as the cause of diseases classified elsewhere; B95.4 Other streptococcus as the cause of diseases classified elsewhere; I10 Essential (primary) hypertension
CPT/HCPCS: 36415; 72193; 80048; 85025; 85610; 85730; 87040; 87070; 87075; 87077; 87186; 87205; 902; 94762; 94799; 96361; 96365; 96367; 96375; 96376; 99285; J0131; J0360; J0690; J2250; J2270; J2405; J2704; J3010; J3490; J7030; S0028

== ENCOUNTER 2020-06-06 06:14 | Inpatient (IN) | payer SELFPAY ==
[2020-06-06] MEDS ORDERED: NORMAL SALINE 1000 ML 1,000 ML IV ONE ×2 (09:09→13:20)
[2020-06-06] MEDS ORDERED: CEFEPIME 2 GM/D5W RTU 2 GM/50 ML RTUPB IV ONE (09:12)
[2020-06-06] MEDS ORDERED: IMIPENEM/CILASTATIN SODIUM INJ 500 MG VIAL IV ONE (09:25)
[2020-06-06] MEDS ORDERED: NEOSTIGMINE METHYLSULFATE 10 MG/10 ML VIAL ONE (09:37)
[2020-06-06] MEDS ORDERED: DEXAMETHASONE SOD PHOSPHATE INJ 4 MG/1 ML VIAL ONE (09:37)
[2020-06-06] MEDS ORDERED: ONDANSETRON HCL INJ/PF 4 MG/2 ML SDV ONE (09:37)
[2020-06-06] MEDS ORDERED: ROCURONIUM BROMIDE INJ 50 MG/5 ML VIAL IV ONE (09:37)
[2020-06-06] MEDS ORDERED: GLYCOPYRROLATE 1 MG/5 ML VIAL ONE (09:37)
[2020-06-06] MEDS ORDERED: SUCCINYLCHOLINE CHLORIDE INJ 200 MG/10 ML VIAL ONE (09:37)
[2020-06-06] MEDS ORDERED: LIDOCAINE 2% INJ-PF (20 MG/ML) 2 ML AMPUL ONE (09:37)
[2020-06-06] MEDS ORDERED: HYDROMORPHONE HCL INJ/PF 2 MG/ML AMPULE IV ONE ×2 (09:53→13:19)
[2020-06-06] MEDS ORDERED: ONDANSETRON HCL INJ/PF 4 MG/2 ML SDV IV ONE ×2 (09:54→13:20)
[2020-06-06 10:09] LABS: ABSOLUTE LYMPHOCYTES (AUTO) 1.2 10^3/uL (0.5-4.7); ABSOLUTE MONOCYTES (AUTO) 1.6 10^3/uL (0.1-1.4); ABSOLUTE NEUT (AUTO) 14.5 10^3/uL (1.7-8.2); BASOPHILS % (AUTO) 0.2 % (0-2); EOSINOPHILS % (AUTO) 0.2 % (0-6); HEMATOCRIT 42.5 % (37.9-51.0); HEMOGLOBIN 14.8 g/dL (13.5-17.0); MEAN CORPUSCULAR HEMOGLOBIN 32.1 pg (27.0-33.4); MEAN CORPUSCULAR HGB CONC 34.9 g/dL (32.0-36.0); MEAN CORPUSCULAR VOLUME 92 fl (80-97); MONOCYTES % (AUTO) 9.5 % (3-13); PLATELET COUNT 169 10^3/uL (150-450); RED BLOOD COUNT 4.62 10^6/uL (4.35-5.55); RED CELL DISTRIBUTION WIDTH 13.2 % (11.5-14.0); SEGMENTED NEUTROPHILS % (AUTO) 83.1 % (42-78); TOTAL CELLS COUNTED % (AUTO) 100 %; WHITE BLOOD COUNT 17.4 10^3/uL (4.0-10.5)
[2020-06-06 10:21] LABS: APPEARANCE,URINE CLEAR; BILIRUBIN,URINE NEGATIVE (NEGATIVE); COLOR,URINE YELLOW; GLUCOSE, URINE NEGATIVE (NEGATIVE); KETONES,URINE NEGATIVE (NEGATIVE); LEUKOCYTE ESTERASE,URINE NEGATIVE (NEGATIVE); NITRITE,URINE NEGATIVE (NEGATIVE); PROTEIN,URINE NEGATIVE (NEGATIVE); URINE SPECIFIC GRAVITY 1.012; UROBILINOGEN,URINE NEGATIVE mg/dL (<2.0)
--- NOTE | 2020-06-06 10:24 | ER Document Report ---
Entered by MARYAM SALMERON SCRIBE 06/06/20 0904 Acting as scribe for:KRYSTA PAT MD ED General - General Chief Complaint: Wound Recheck Stated Complaint: POSSIBLE LOWER BUTTOCKS INFECTION Primary Care Provider: VASYL SALAZAR MD [Primary Care Provider] - Follow up as needed Mode of Arrival: Medic Information source: Patient Notes: This 50 year old male patient brought in by EMS presents to the ED today with complaints of right perirectal pain related to a possible abscess that started around 1400 yesterday afternoon. Patient has a history of recurrent right perirectal abscess requiring I&D, last one was on 10/20/[address] Manuel. Patient denies any drainage from this area. He does report a temperature of 100.9 this morning, but denies any known COVID exposure/concerns including loss of taste/smell, cough, chills, or sore throat. He had a rapid COVID test done this morning by EMS which was negative. Last meal was around 2300 last night. Patient discloses use of marijuana and cocaine, last use was x3 days ago. TRAVEL OUTSIDE OF THE [place] IN LAST 30 DAYS: No - Related Data Allergies/Adverse Reactions: No Known Allergies Allergy (Verified 06/06/20 06:30) Past Medical History - General Information source: Patient, [facility] - Social History Smoking Status: Current Every Day Smoker Chew tobacco use (# tins/day): No Smoking Education Provided: No Frequency of alcohol use: Social Drug Abuse: Cocaine, Marijuana Family History: Reviewed & Not Pertinent Patient has suicidal ideation: No Patient has homicidal ideation: No - Past Medical History Cardiac Medical History: Reports: Hx Hypertension Past Surgical History: Reports: Hx Rectal Surgery - I&D of right perirectal abscess x3, Other - cyst removal from neck (pediatric); unknown further details - Immunizations Immunizations up to date: Yes Hx Diphtheria, Pertussis, Tetanus Vaccination: Yes Review of Systems - Review of Systems Constitutional: See HPI, Fever. denies: Chills EENT: See HPI. denies: Throat pain Cardiovascular: No symptoms reported Respiratory: See HPI. denies: Cough Gastrointestinal: See HPI, Other - Perirectal pain Genitourinary: No symptoms reported Male Genitourinary: No symptoms reported Musculoskeletal: No symptoms reported Skin: No symptoms reported Hematologic/Lymphatic: No symptoms reported Neurological/Psychological: No symptoms reported -: Yes All other systems reviewed and negative Physical Exam - Vital signs Vitals: Temp Pulse Resp BP Pulse Ox 99.5 F 106 H 20 149/107 H 97 06/06/20 06:24 06/06/20 06:24 06/06/20 06:24 06/06/20 06:24 06/06/20 06:24 - General General appearance: Alert In distress: None - HEENT Head: Normocephalic, Atraumatic Eyes: Normal Pupils: PERRL - Respiratory Respiratory status: No respiratory distress Chest status: Nontender Breath sounds: Normal Chest palpation: Normal - Cardiovascular Rhythm: Regular Heart sounds: Normal auscultation Murmur: No Friction rub: No Gallop: None auscultated - Abdominal Inspection: Obese Distension: No distension Bowel sounds: Normal Tenderness: Nontender - Abdomen soft Organomegaly: No organomegaly - Rectal Notes: There is a 25 x 3 cm linear column of induration and soft tissue swelling on the ridge of the right medial buttock area that is very tender to palpation. It is n ot erythematous or warm to the touch. No active draining appreciated. Scar tissue present from prior I&D's. Digital insertion: patient is tender upon examination, stool is brown in color, guaiac negative. There is no evidence of pus draining perirectally. - Back Back: Normal, Nontender - Extremities General upper extremity: Normal inspection General lower extremity: Normal inspection. No: Edema - Neurological Neuro grossly intact: Yes Orientation: AAOx4 Adair Coma Scale Eye Opening: Spontaneous Adair Coma Scale Verbal: Oriented Cameron Coma Scale Motor: Obeys Commands Cameron Coma Scale Total: 15 - Psychological Associated symptoms: Normal affect, Normal mood - Skin Skin Temperature: Warm Skin Moisture: Dry Skin Color: Normal Course - Re-evaluation Re-evalutation: 06/06/20 13:14 Patient resting comfortably at this time. Patient did request further pain management at this time. - Vital Signs Vital signs: Temp Pulse Resp BP Pulse Ox 99.5 F 106 H 19 142/84 H 91 L 06/06/20 06:24 06/06/20 06:24 06/06/20 14:01 06/06/20 14:01 06/06/20 14:01 06/06/20 13:14 Vital signs show blood pressure 149/107 temp 99 5 - Laboratory Result Diagrams: 06/06/20 09:23 12 10:26 Laboratory results interpreted by me: 06/06/20 06/06/20 06/06/20 09:23 09:23 10:26 WBC 17.4 H Lymph % (Auto) 7.0 L Absolute Neuts (auto) 14.5 H Absolute Monos (auto) 1.6 H Seg Neutrophils % 83.1 H Creatinine 1.29 H Est GFR (MDRD) Non-Af 59 L Glucose 115 H Urine Blood SMALL H Laboratory shows leukocytosis of 17,000 - Diagnostic Test Radiology reviewed: Image reviewed, Reports reviewed Radiology results interpreted by me: 06/06/20 12:16 Abdomen/Pelvis CT 06/06/20 09:06 IMPRESSION: 1. Right perianal abscess appears slightly increased in size since prior examination. The full inferior extent of the inflammation is not fully included on this examination. Chest X-Ray 06/06/20 09:09 IMPRESSION: No acute radiographic abnormality. Extremity Ultrasound 06/06/20 09:49 IMPRESSION: Cellulitis. Cannot exclude small abscess. 06/06/20 13:15 CT scan of it abdomen and pelvis shows right perianal abscess increased in size since prior exam. Chest x-ray shows no acute process ultrasound shows cellulitis. - Consults Dr. Manuel, Surgicalist Time consulted: 13:55 Consulted provider: will come to ER Discharge - Discharge Clinical Impression: Perirectal abscess Condition: Fair Disposition: ADMITTED INPATIENT Admitting Provider: Gail Manuel Unit Admitted: Surgical Floor Referrals: VASYL SALAZAR MD [Primary Care Provider] - Follow up as needed I personally performed the services described in the documentation, reviewed and edited the documentation which was dictated to the scribe in my presence, and it accurately records my words and actions.
[2020-06-06 10:30] LABS: INTERNATIONAL RATION (INR) 1.03; PROTHROMBIN TIME 13.7 SEC (11.4-15.4)
--- NOTE | 2020-06-06 10:39 | RADIOLOGY REPORT (SQ) ---
EXAM DESCRIPTION: CHEST SINGLE VIEW IMAGES COMPLETED DATE/TIME: 06/06/2020 7:25 am REASON FOR STUDY: fever COMPARISON: None. EXAM PARAMETERS: NUMBER OF VIEWS: One view. TECHNIQUE: Single frontal radiographic view of the chest acquired. RADIATION DOSE: NA LIMITATIONS: External leads partially obscure underlying structures. FINDINGS: LUNGS AND PLEURA: No opacities, masses or pneumothorax. No pleural effusion. MEDIASTINUM AND HILAR STRUCTURES: No masses. Contour normal. HEART AND VASCULAR STRUCTURES: Heart normal in size. Normal vasculature. BONES: No acute findings. HARDWARE: None in the chest. OTHER: No other significant finding. IMPRESSION: No acute radiographic abnormality. TECHNICAL DOCUMENTATION: JOB ID: [id number] 2010 [employer]- All Rights Reserved Reading location - IP/workstation name: [email or web address]
[2020-06-06 10:58] LABS: ALKALINE PHOSPHATASE 83 U/L (38-126); ANION GAP 7 (5-19); ASPARTATE AMINO TRANSFERASE 22 U/L (17-59); BILIRUBIN,DIRECT 0.3 mg/dL (0.0-0.4); BILIRUBIN,TOTAL 0.9 mg/dL (0.2-1.3); BLOOD UREA NITROGEN 12 mg/dL (7-20); CALCIUM 9.1 mg/dL (8.4-10.2); CARBON DIOXIDE 28 mmol/L (22-30); CHLORIDE 105 mmol/L (98-107); GLUCOSE 115 mg/dL (75-110); POTASSIUM 3.7 mmol/L (3.6-5.0)
[2020-06-06 11:09] LABS: URINE AMPHETAMINES SCREEN NEGATIVE; URINE BARBITURATES SCREEN NEGATIVE; URINE BENZODIAZEPINES SCREEN NEGATIVE; URINE MARIJUANA (THC) SCREEN NEGATIVE; URINE METHADONE SCREEN NEGATIVE; URINE PHENCYCLIDINE SCREEN NEGATIVE
[2020-06-06 11:13] LABS: URINE COCAINE SCREEN UNCONFIRMED POSITIVE
--- NOTE | 2020-06-06 11:41 | RADIOLOGY REPORT (SQ) ---
EXAM DESCRIPTION: CT ABD/PELVIS WITH IV ONLY IMAGES COMPLETED DATE/TIME: 06/06/2020 8:19 am REASON FOR STUDY: right buttock soft tissue swelling/?abscess COMPARISON: CT pelvis 10/20/2018. TECHNIQUE: CT scan of the abdomen and pelvis performed using helical scanning technique with dynamic intravenous contrast injection. No oral contrast. Images reviewed with lung, soft tissue, and bone windows. Reconstructed coronal and sagittal MPR images reviewed. Delayed images for evaluation of the urinary system also acquired. All images stored on PACS. All CT scanners at this facility use dose modulation, iterative reconstruction, and/or weight based d osing when appropriate to reduce radiation dose to as low as reasonably achievable (ALARA). [facility]: Dose Right [facility]: CareDose [facility]: Dose Right [facility]: Teradose 4D [facility]: Echologics CONTRAST TYPE AND DOSE: contrast/concentration: Isovue 350.00 mmol/ml; Total Contrast Delivered: 98. 9 ml; Total Saline Delivered: 51.7 ml RENAL FUNCTION: Creatinine 1.29 RADIATION DOSE: CT Rad equipment meets quality standard of care and radiation dose reduction techniq ues were employed. CTDIvol: 17.6 - 20.2 mGy. DLP: 2340 mGy-cm.. LIMITATIONS: Inferior extent of abscess in the pelvis is not fully included. FINDINGS: LOWER CHEST: Mild left linear opacities likely representing atelectasis. LIVER: Normal size. No masses. No dilated ducts. SPLEEN: Probable tiny cyst inferior spleen. Spleen is normal in size. PANCREAS: No masses. No significant calcifications. No adjacent inflammation or peripancreatic fluid collections. Pancreatic duct not dilated. GALLBLADDER: No identified stones by CT criteria. No inflammatory changes to suggest cholecystitis. ADRENAL GLANDS: No significant masses or asymmetry. RIGHT KIDNEY AND URETER: No solid masses. No significant calcifications. No hydronephrosis or hyd roureter. LEFT KIDNEY AND URETER: No solid masses. No significant calcifications. No hydronephrosis or hydr oureter. AORTA AND VESSELS: No aneurysm. No dissection. Renal arteries, SMA, celiac without stenosis. RETROPERITONEUM: No retroperitoneal adenopathy, hemorrhage or masses. BOWEL AND PERITONEAL CAVITY: There is a partially visualized right lower perirectal/ perianal abscess at site of previously demonstrated abscess. The abscess measures approximately 4.8 x 2.3 cm in AP a nd transverse dimension, previously 3.7 x 2.1 cm. The full inferior extent is not fully included on this examination, but measures at least 4.1 cm in craniocaudal dimension. Adjacent soft tissue thick ening and stranding is also demonstrated. No proximal bowel wall thickening or dilatation. APPENDIX: Normal. PELVIS: No mass. No free fluid. Normal bladder. ABDOMINAL WALL: As above. No additional abnormality. BONES: No significant or acute findings. OTHER: No other significant finding. IMPRESSION: 1. Right perianal abscess appears slightly increased in size since prior examination. The full inferior extent of the inflammation is not fully included on this examination. TECHNICAL DOCUMENTATION: JOB ID: [id number] Quality ID # [id number]: Final reports with documentation of one or more dose reduction techniques (e.g., Au tomated exposure control, adjustment of the mA and/or kV according to patient size, use of iterative reconstruction technique) 2010 [employer]- All Rights Reserved Reading location - IP/workstation name: [email or web address]
--- NOTE | 2020-06-06 11:48 | RADIOLOGY REPORT (SQ) ---
EXAM DESCRIPTION: U/S EXTREMITY NONVASCULAR LTD IMAGES COMPLETED DATE/TIME: 06/06/2020 11:33 am REASON FOR STUDY: right buttock abscess COMPARISON: None. TECHNIQUE: Dynamic and static grayscale images acquired of the localized site of clinical concern an d recorded on PACS. Additional selected color Doppler and spectral images recorded. SITE OF CONCERN: Right buttock LIMITATIONS: None. FINDINGS: Approximately 4 x 2 cm heterogeneous hypoechoic lesion with peripheral hyperemia. No orga nized wall. IMPRESSION: Cellulitis. Cannot exclude small abscess. TECHNICAL DOCUMENTATION: JOB ID: [id number] 2010 [employer]- All Rights Reserved Reading location - IP/workstation name: [email or web address]
--- NOTE | 2020-06-06 14:41 | PDOC H&P ---
History of Present Illness Admission Date/PCP: VASYL SALAZAR MD History of Present Illness: KOURTNEY HARRINGTON is a 50 year old malepatient brought in by EMS presents to the ED today with complaints of right perirectal pain related to a possible abscess that started around 1400 yesterday afternoon. Patient has a history of recurrent right perirectal abscess requiring I&D, last one was on 10/20/[address] Manuel. Patient denies any drainage from this area. He does report a temperature of 100.9 this morning, but denies any known COVID exposure/concerns including loss of taste/smell, cough, chills, or sore throat. He had a rapid COVID test done this morning by EMS which was negative. Last meal was around 2300 last night Past Medical History Cardiac Medical History: Reports: Hypertension Psychiatric Medical History: Denies: Depression Past Surgical History Past Surgical History: Reports: Other - cyst removal from neck (pediatric); unknown further details previous recta Social History Smoking Status: Current Every Day Smoker Frequency of Alcohol Use: None Hx Recreational Drug Use: No Drugs: None Hx Prescription Drug Abuse: No Family History Family History: Reviewed & Not Pertinent Parental Family History Reviewed: No Children Family History Reviewed: NA Sibling(s) Family History Reviewed.: NA Medication/Allergy Home Medications: No Home Medications 10/20/17 Allergies/Adverse Reactions: No Known Allergies Allergy (Verified 06/06/20 06:30) Review of Systems Constitutional: PRESENT: fever(s) Eyes: PRESENT: as per HPI Ears: ABSENT: as per HPI, hearing changes, other Nose, Mouth, and Throat: ABSENT: as per HPI, headache(s), mouth pain, sore throat, vertigo, other Breasts: ABSENT: as per HPI, other Cardiovascular: ABSENT: as per HPI, chest pain, dyspnea on exertion, edema, orthropnea, palpitations, other Gastrointestinal: PRESENT: as per HPI Genitourinary: ABSENT: as per HPI, difficulty urinating, dysuria, hematuria, nocturia, other Musculoskeletal: ABSENT: as per HPI, back pain, deformity, joint swelling, muscle weakness, other Integumentary: ABSENT: as per HPI, diaphoresis, erythema, lesions, pruritus, rash, wounds, other Neurological: ABSENT: as per HPI, abnormal gait, abnormal movements, abnormal speech, confusion, convulsions, dizziness, focal weakness, frequent falls, lack of coordination, memory loss, numbness, paresthesias, restless legs, syncope, tingling, tremor(s), vertigo, weakness, other Psychiatric: ABSENT: as per HPI, anxiety, depression, hallucinations, homidical ideation, suicidal ideation, other Endocrine: ABSENT: as per HPI, cold intolerance, flushing, heat intolerance, menstrual abnormalities, polydipsia, polyphagia, polyuria, other Hematologic/Lymphatic: ABSENT: as per HPI, easy bleeding, easy bruising, lymph adenopathy, other Allergic/Immunologic: ABSENT: as per HPI, seasonal rhinorrhea, other Physical Exam Vital Signs: Temp Pulse Resp BP Pulse Ox 99.5 F 106 H 19 142/84 H 91 L 06/06/20 06:24 06/06/20 06:24 06/06/20 14:01 06/06/20 14:01 06/06/20 14:01 Intake & Output 06/05/20 06/06/20 06/07/20 06:59 06:59 06:59 Intake Total 1050 Balance 1050 Weight 119.6 kg General appearance: PRESENT: no acute distress Head exam: PRESENT: normocephalic Eye exam: PRESENT: EOMI Ear exam: PRESENT: normal external ear exam Mouth exam: PRESENT: moist Neck exam: PRESENT: full ROM Respiratory exam: PRESENT: clear to auscultation jessica Cardiovascular exam: PRESENT: RRR Pulses: PRESENT: normal radial pulses, normal femoral pulses Breast: PRESENT: Normal GI/Abdominal exam: PRESENT: soft Rectal exam: PRESENT: other - large abscess rt buttock 2cm from anal verdge at 7;00 Extremities exam: PRESENT: full ROM Musculoskeletal exam: PRESENT: full ROM Neurological exam: PRESENT: alert, awake, oriented to person, oriented to place Psychiatric exam: PRESENT: appropriate affect Skin exam: PRESENT: dry Results Laboratory Results: 06/06/20 09:23 06/06/20 10:26 06/06/20 06/06/20 06/06/20 09:23 09:23 09:23 WBC 17.4 H RBC 4.62 Hgb 14.8 Hct 42.5 MCV 92 MCH 32.1 MCHC 34.9 RDW 13.2 Plt Count 169 Seg Neutrophils % 83.1 H Sodium Cancelled Potassium Cancelled Chloride Cancelled Carbon Dioxide Cancelled Anion Gap Cancelled BUN Cancelled Creatinine Cancelled Est GFR ( Amer) Cancelled Est GFR (Non-Af Amer) Cancelled Glucose Cancelled Lactic Acid 0.9 Calcium Cancelled Total Bilirubin Cancelled AST Cancelled Alkaline Phosphatase Cancelled Total Protein Cancelled Albumin Cancelled Urine Color Urine Appearance Urine pH Ur Specific Fitzgerald Urine Protein Urine Glucose (UA) Urine Ketones Urine Blood Urine Nitrite Ur Leukocyte Esterase Urine RBC (Auto) 06/06/20 06/06/20 09:23 10:26 WBC RBC Hgb Hct MCV MCH MCHC RDW Plt Count Seg Neutrophils % Sodium 139.7 Potassium 3.7 Chloride 105 Carbon Dioxide 28 Anion Gap 7 BUN 12 Creatinine 1.29 H Est GFR ( Amer) > 60 Est GFR (Non-Af Amer) Glucose 115 H Lactic Acid Calcium 9.1 Total Bilirubin 0.9 AST 22 Alkaline Phosphatase 83 Total Protein 7.0 Albumin 4.0 Urine Color YELLOW Urine Appearance CLEAR Urine pH 6.0 Ur Specific Fitzgerald 1.012 Urine Protein NEGATIVE Urine Glucose (UA) NEGATIVE Urine Ketones NEGATIVE Urine Blood SMALL H Urine Nitrite NEGATIVE Ur Leukocyte Esterase NEGATIVE Urine RBC (Auto) 1 Impressions: Abdomen/Pelvis CT 06/06/20 09:06 IMPRESSION: 1. Right perianal abscess appears slightly increased in size since prior examination. The full inferior extent of the inflammation is not fully included on this examination. Chest X-Ray 06/06/20 09:09 IMPRESSION: No acute radiographic abnormality. Extremity Ultrasound 06/06/20 09:49 IMPRESSION: Cellulitis. Cannot exclude small abscess. Assessment & Plan - Time Anticipated Discharge Disposition: Home, Self Care Anticipated Discharge Timeframe: within 24 hours - Plan Summary Plan Summary: recurrent perirectal abscess plan for i and d in or.
[2020-06-06] MEDS ORDERED: KETAMINE HCL INJ 500 MG/10 ML VIAL ONE (15:00)
[2020-06-06] MEDS ORDERED: FENTANYL CITRATE INJ/PF 100 MCG/2 ML AMPUL ONE (15:00)
[2020-06-06] MEDS ORDERED: MIDAZOLAM 2 MG/2 ML INJ ONE (15:01)
[2020-06-06] MEDS ORDERED: EPHEDRINE SULFATE INJ 50 MG/1 ML AMPULE ONE (15:01)
[2020-06-06] MEDS ORDERED: DEXMEDETOMIDINE INJ 80 MCG/20 ML VIAL IV ONE (15:01)
[2020-06-06] MEDS ORDERED: PROPOFOL INJ 200 MG/20 ML VIAL IV ONE (15:01)
[2020-06-06] MEDS ORDERED: DIPHENHYDRAMINE HCL 50 MG/ML VIAL IV PRN (16:33)
[2020-06-06] MEDS ORDERED: MEPERIDINE HCL/PF INJ 25 MG/1 ML DISP.SYRIN IV PRN (16:33)
[2020-06-06] MEDS ORDERED: PROMETHAZINE HCL INJ 25 MG/1 ML VIAL IV PRN ×2 (16:33)
[2020-06-06] MEDS ORDERED: FENTANYL CITRATE INJ/PF 100 MCG/2 ML AMPUL IV PRN ×3 (16:33)
[2020-06-06] MEDS ORDERED: OXYCODONE-ACETAMINOPHEN 5-325 MG TABLET PO PRN ×2 (16:33)
[2020-06-06] MEDS ORDERED: MORPHINE SULFATE 10 MG/ML INJ IV PRN (16:51)
[2020-06-06] MEDS ORDERED: ONDANSETRON HCL INJ/PF 4 MG/2 ML SDV IV PRN (16:51)
[2020-06-06] MEDS ORDERED: POTASSI CL 20 MEQ/1/2NS 1L 20 MEQ/1,000 ML RTUINJ IV PRN (16:51)
[2020-06-06] MEDS: LABETALOL HCL INJ 20 MG/4 ML DISP.SYRIN IV ONE ×2 (17:05→17:15)
--- NOTE | 2020-06-06 17:08 | Operative Report ---
Operative Report DATE OF SURGERY: 06/06/20 PREOPERATIVE DIAGNOSIS: Perirectal abscess POSTOPERATIVE DIAGNOSIS: Perirectal abscess with fistula OPERATION: Exam under anesthesia incision and drainage of perirectal abscess with seton placement for fistula in ano SURGEON: HUGO VALLECILLO ANESTHESIA: GA TISSUE REMOVED OR ALTERED: None ESTIMATED BLOOD LOSS: 25 cc INTRAOPERATIVE FINDINGS: Large perirectal abscess on the right buttock with communication to the rectum PROCEDURE: Patient was brought to the operating room awake alert stable condition placed on the operating table supine position induced under general anesthesia intubated. He was placed up in a high lithotomy position. After adequate prep and drape timeout the procedure commenced. The endoscope was placed into the rectum and examine all 4 quadrants in the right quadrant at the 9 o'clock position upon palpation of the abscess in the right buttock just 2 cm from the anal verge I could see a gas and pus exiting the small opening in the rectum above the sphincters. I therefore placed a right angle clamp into that opening and slightly spreading and the large amount of pus into the rectum after compression of the abscess swelling on the buttock. I then made a incision 2 cm distal to the anal verge at the 9 o'clock position in the buttock skin with Bovie cautery. This was approximately 1/2 cm long then with a tonsil clamp was used to penetrate the abscess cavity I placed my finger into the capsule he broke up loculations and felt the right angle clamp I then placed a red vessel loop into the jaws of the right angle clamp and pulled it through so it would act as a seton. I copiously irrigated the abscess cavity. I then used Bovie cautery to cut the endoderm and the skin to expose the sphincter mechanism and tightened up the seton. The abscess cavity was quite large approximately the size of a golf ball I irrigated with normal saline and then placed a Malecot catheter into the abscess cavity cut it and fixed to the skin edge with 2 sutures of 2-0 nylon. Again irrigated the abscess cavity normal saline. Hemostasis was obtained with Bovie cautery or digital pressure. A sterile dressing was applied which completed the procedure. Estimated blood loss was less than 25 cc sponge needle counts correct x2 patient was placed in a prone position extubated transferred recovery room in stable condition
[2020-06-06] MEDS: METRONIDAZOLE 500 MG/NS RTU 500 MG/100 ML RTUPB IV SCH (18:07)
[2020-06-06] MEDS: CEFAZOLIN 1 GM/D5W RTU 1 GM/50 ML RTUPB IV SCH (18:07)
[2020-06-06] MEDS: DOCUSATE SODIUM 100 MG CAPSULE PO SCH (18:07)
[2020-06-06] MEDS ORDERED: LABETALOL HCL INJ 20 MG/4 ML DISP.SYRIN IV PRN (19:04)
[2020-06-06] MEDS: OXYCODONE-ACETAMINOPHEN 5-325 MG TABLET PO PRN (20:43)
[2020-06-06] MEDS: FAMOTIDINE INJ/PF 20 MG/2 ML SDV IV SCH (21:17)
[2020-06-07] MEDS: METRONIDAZOLE 500 MG/NS RTU 500 MG/100 ML RTUPB IV SCH ×2 (01:40→10:11)
[2020-06-07] MEDS: CEFAZOLIN 1 GM/D5W RTU 1 GM/50 ML RTUPB IV SCH ×2 (01:40→10:10)
[2020-06-07] MEDS: OXYCODONE-ACETAMINOPHEN 5-325 MG TABLET PO PRN ×2 (05:25→09:37)
--- NOTE | 2020-06-07 05:30 | PDOC DISCHARGE SUMMARY ---
General - Admit/Disc Date/PCP Admission Date/Primary Care Provider: 06/06/20 15:14 VASYL SALAZAR MD Discharge Date: 06/07/20 - Discharge Diagnosis Final Diagnosis: perirectal abscess - Assessment Summary: Patient presented with perirectal pain a diagnosis of perirectal abscess was made in the emergency room and he was taken to the operating room where he underwent an incision and drainage of a perirectal abscess with a seton placement for a fistula. The following day he was doing well he had minimal amounts of pain he was given instruction on sitz baths and a prescription for ciprofloxacin 500 mg p.o. twice daily and for pain pills. He will be discharged home today on home sitz bath's and he will give be given a follow-up appointment with me in 7 to 10 days - Additional Information Resuscitation Status: Full Code Discharge Diet: As Tolerated Discharge Activity: Activity As Tolerated Referrals: VASYL SALAZAR MD [Primary Care Provider] - Follow up as needed Prescriptions: Ciprofloxacin HCl [Cipro 500 mg Tablet] 500 mg PO BID #20 tablet Oxycodone HCl/Acetaminophen [Percocet 7.5-325 mg Tablet] 1 each PO Q6HP PRN #15 tablet PRN Reason: Home Medications: Ciprofloxacin HCl [Cipro 500 mg Tablet] 500 mg PO BID #20 tablet 06/07/20 Oxycodone HCl/Acetaminophen [Percocet 7.5-325 mg Tablet] 1 each PO Q6HP PRN #15 tablet 06/07/20 Additional Information: sitz baths at home at lease [place]. needs f/u appoint [facility] clinic next week History of Present Illiness History of Present Illness: KOURTNEY HARRINGTON is a 50 year old malepatient brought in by EMS presents to the ED today with complaints of right perirectal pain related to a possible abscess that started around 1400 yesterday afternoon. Patient has a history of recurrent right perirectal abscess requiring I&D, last one was on 10/20/[address] Manuel. Patient denies any drainage from this area. He does report a temperature of 100.9 this morning, but denies any known COVID exposure/concerns including loss of taste/smell, cough, chills, or sore throat. He had a rapid COVID test done this morning by EMS which was negative. Last meal was around 2300 last night Physical Exam Vital Signs: Temp Pulse Resp BP Pulse Ox 97.7 F 94 16 120/81 93 06/06/20 22:55 06/06/20 22:55 06/06/20 22:55 06/06/20 22:55 06/06/20 22:55 Intake & Output 06/05/20 06/06/20 06/07/20 06:59 06:59 06:59 Intake Total 3700 Output Total 1885 Balance 1815 Weight 119.6 kg 119.6 kg Results Laboratory Results: WBC 17.4 10^3/uL (4.0-10.5) H 06/06/20 09:23 RBC 4.62 10^6/uL (4.35-5.55) 06/06/20 09:23 Hgb 14.8 g/dL (13.5-17.0) 06/06/20 09:23 Hct 42.5 % (37.9-51.0) 06/06/20 09:23 MCV 92 fl (80-97) 06/06/20 09:23 MCH 32.1 pg (27.0-33.4) 06/06/20 09:23 MCHC 34.9 g/dL (32.0-36.0) 06/06/20 09:23 RDW 13.2 % (11.5-14.0) 06/06/20 09:23 Plt Count 169 10^3/uL (150-450) 06/06/20 09:23 Lymph % (Auto) 7.0 % (13-45) L 06/06/20 09:23 [place] % (Auto) 9.5 % (3-13) 06/06/20 09:23 Eos % (Auto) 0.2 % (0-6) 06/06/20 09:23 Baso % (Auto) 0.2 % (0-2) 06/06/20 09:23 Absolute Neuts (auto) 14.5 10^3/uL (1.7-8.2) H 06/06/20 09:23 Absolute Lymphs (auto) 1.2 10^3/uL (0.5-4.7) 06/06/20 09:23 Absolute Monos (auto) 1.6 10^3/uL (0.1-1.4) H 06/06/20 09:23 Absolute Eos (auto) 0.0 10^3/uL (0.0-0.6) 06/06/20 09:23 Absolute Basos (auto) 0.0 10^3/uL (0.0-0.2) 06/06/20 09:23 Seg Neutrophils % 83.1 % (42-78) H 06/06/20 09:23 PT 13.7 SEC (11.4-15.4) 06/06/20 09:23 INR 1.03 06/06/20 09:23 Sodium 139.7 mmol/L (137-145) 06/06/20 10:26 Potassium 3.7 mmol/L (3.6-5.0) 06/06/20 10:26 Chloride 105 mmol/L (98-107) 06/06/20 10:26 Carbon Dioxide 28 mmol/L (22-30) 06/06/20 10:26 Anion Gap 7 (5-19) 06/06/20 10:26 BUN 12 mg/dL (7-20) 06/06/20 10:26 Creatinine 1.29 mg/dL (0.52-1.25) H 06/06/20 10:26 Est GFR ( Amer) > 60 (>60) 06/06/20 10:26 Est GFR (Non-Af Amer) Cancelled 06/06/20 09:23 Est GFR (MDRD) Non-Af 59 (>60) L 06/06/20 10:26 Glucose 115 mg/dL (75-110) H 06/06/20 10:26 Lactic Acid 0.9 mmol/L (0.7-2.1) 06/06/20 09:23 Calcium 9.1 mg/dL (8.4-10.2) 06/06/20 10:26 Total Bilirubin 0.9 mg/dL (0.2-1.3) 06/06/20 10:26 Direct Bilirubin 0.3 mg/dL (0.0-0.4) 06/06/20 10:26 Neonat Total Bilirubin Not Reportable 06/06/20 10:26 Neonat Direct Bilirubin Not Reportable 06/06/20 10:26 Neonat Indirect Bili Not Reportable 06/06/20 10:26 AST 22 U/L (17-59) 06/06/20 10:26 ALT 22 U/L (<50) 06/06/20 10:26 Alkaline Phosphatase 83 U/L (38-126) 06/06/20 10:26 Total Protein 7.0 g/dL (6.3-8.2) 06/06/20 10:26 Albumin 4.0 g/dL (3.5-5.0) 06/06/20 10:26 EGFR Cancelled 06/06/20 09:23 Urine Color YELLOW 06/06/20 09:23 Urine Appearance CLEAR 06/06/20 09:23 Urine pH 6.0 (5.0-9.0) 06/06/20 09:23 Ur Specific [place] 1.012 06/06/20 09:23 Urine Protein NEGATIVE mg/dL (NEGATIVE) 06/06/20 09:23 Urine Glucose (UA) NEGATIVE mg/dL (NEGATIVE) 06/06/20 09:23 Urine Ketones NEGATIVE mg/dL (NEGATIVE) 06/06/20 09:23 Urine Blood SMALL (NEGATIVE) H 06/06/20 09:23 Urine Nitrite NEGATIVE (NEGATIVE) 06/06/20 09:23 Urine Bilirubin NEGATIVE (NEGATIVE) 06/06/20 09:23 Urine Urobilinogen NEGATIVE mg/dL (<2.0) 06/06/20 09:23 Ur Leukocyte Esterase NEGATIVE (NEGATIVE) 06/06/20 09:23 Urine RBC (Auto) 1 /HPF 06/06/20 09:23 Urine Mucus (Auto) RARE /LPF 06/06/20 09:23 Urine Ascorbic Acid NEGATIVE (NEGATIVE) 06/06/20 09:23 Urine Opiates Screen NEGATIVE 06/06/20 09:23 Urine Methadone Screen NEGATIVE 06/06/20 09:23 Ur Barbiturates Screen NEGATIVE 06/06/20 09:23 Ur Phencyclidine Scrn NEGATIVE 06/06/20 09:23 Ur Amphetamines Screen NEGATIVE 06/06/20 09:23 U Benzodiazepines Scrn NEGATIVE 06/06/20 09:23 Urine Cocaine Screen UNCONFIRMED POSITIVE 06/06/20 09:23 U Marijuana (THC) Screen NEGATIVE 06/06/20 09:23 Influenza A (RT-PCR) NEGATIVE (NEGATIVE) 06/06/20 14:10 Influenza B (RT-PCR) NEGATIVE (NEGATIVE) 06/06/20 14:10 RSV (RT-PCR) NEGATIVE (NEGATIVE) 06/06/20 14:10 SARS-CoV-2 Rap RNA(RT-PCR) NEGATIVE (NEGATIVE) 06/06/20 14:10 Impressions: Abdomen/Pelvis CT 06/06/20 09:06 IMPRESSION: 1. Right perianal abscess appears slightly increased in size since prior examination. The full inferior extent of the inflammation is not fully included on this examination. Chest X-Ray 06/06/20 09:09 IMPRESSION: No acute radiographic abnormality. Extremity Ultrasound 06/06/20 09:49 IMPRESSION: Cellulitis. Cannot exclude small abscess.
[2020-06-07 05:39] LABS: HEMATOCRIT 39.1 % (37.9-51.0); HEMOGLOBIN 13.6 g/dL (13.5-17.0); MEAN CORPUSCULAR HEMOGLOBIN 31.9 pg (27.0-33.4); MEAN CORPUSCULAR HGB CONC 34.9 g/dL (32.0-36.0); MEAN CORPUSCULAR VOLUME 92 fl (80-97); PLATELET COUNT 149 10^3/uL (150-450); RED BLOOD COUNT 4.27 10^6/uL (4.35-5.55); RED CELL DISTRIBUTION WIDTH 13.1 % (11.5-14.0); WHITE BLOOD COUNT 18.4 10^3/uL (4.0-10.5)
[2020-06-07 05:57] LABS: ANION GAP 10 (5-19); BLOOD UREA NITROGEN 14 mg/dL (7-20); CALCIUM 9.4 mg/dL (8.4-10.2); CARBON DIOXIDE 24 mmol/L (22-30); CHLORIDE 104 mmol/L (98-107); GLUCOSE 133 mg/dL (75-110); POTASSIUM 4.3 mmol/L (3.6-5.0)
[2020-06-07 06:07] LABS: ABSOLUTE LYMPHOCYTES# (MANUAL) 1.3 10^3/uL (0.5-4.7); ABSOLUTE MONOCYTES # (MANUAL) 1.8 10^3/uL (0.1-1.4); BAND NEUTROPHILS % (MANUAL) 2 % (3-5); BASOPHILS % (MANUAL) 0 % (0-2); EOSINOPHILS % (MANUAL) 0 % (0-6); LYMPHOCYTES % (MANUAL) 7 % (13-45); MONOCYTES % (MANUAL) 10 % (3-13); PLATELET COMMENT ADEQUATE; RBC MORPHOLOGY COMMENT NORMO-CYTIC/CHROMIC; SEGMENTED NEUTROPHILS % (MAN) 81 % (42-78); TOTAL CELLS COUNTED 100
[2020-06-07 07:54] VITALS: BP 115/73
[2020-06-07] MEDS ORDERED: INFLUENZA QUAD (6MOS+) 2020-21 VAC 0.5 ML SYR IM ONE (08:00)
[2020-06-07] MEDS: DOCUSATE SODIUM 100 MG CAPSULE PO SCH (10:11)
[2020-06-07] MEDS: FAMOTIDINE INJ/PF 20 MG/2 ML SDV IV SCH (10:11)
== END 2020-06-07 10:28 | disposition home or self-care (01) | DRG 346 ==
LOC: ER 06:14 → EH 15:14 → 4W 17:52
PROVIDERS: ADMIT Surgery; ATTEND Surgery
PROC: 0D9P8ZZ Drainage of Rectum, Via Natural or Artificial Opening Endoscopic (ICD-10-PCS; principal; 2020-06-06 15:30)
DX: K61.1 Rectal abscess (principal); I10 Essential (primary) hypertension; F17.200 Nicotine dependence, unspecified, uncomplicated; Z20.828 Contact with and (suspected) exposure to other viral communicable diseases
CPT/HCPCS: 36415; 71045; 74177; 76882; 80048; 80053; 80307; 81001; 83605; 85025; 85610; 87040; 902; 94799; 96361; 96365; 96367; 96375; 96376; 99140; 99285; 0241U; C1729; C9803; J0330; J0690; J0692; J0743; J1100; J1170; J2250; J2405; J2704; J2710; J3010; J3480; J3490; J7030